=== PATIENT | male | born 1980 | race Caucasian/White ===

== ENCOUNTER 2024-10-24 13:00 | Inpatient (IN) | payer OTHER, SELFPAY ==
[2024-10-24] VITALS (36 sets, daily range): BP systolic 110–148; BP diastolic 56–99; BMI 21.0
--- NOTE | 2024-10-24 10:56 | ED.GENMED ---
History of Present Illness
General
Chief Complaint: Abdominal Symptoms
Source: patient
Exam Limitations: none
Time Seen by Provider: 10/24/24 10:42
History of Present Illness
History of Present Illness:
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 Patient started to feel unwell yesterday
afternoon while at work. He went to the bathroom around 4:30 PM and had an episode of vomiting which bloody. He states it 'looked like the exorcist.' Patient describes vomiting 'dark red with chunks.' He has vomited every hour since then. The
emesis appeared brown at one point. EMS reports balwinder bloody emesis on their arrival which was dark red. Patient started to notice black tarry stool this morning. He reports some abdominal discomfort which he attributes to the vomiting. He does
not take any blood thinners. He has never been diagnosed with liver disease/cirrhosis in the past.
Past History
Past History
ED Past Medical History: Other (Kidney stones, Ulcers); Negative Asthma, HTN, Hypercholesterolemia or NIDDM
ED Past Surgical History: None
Social History
Tobacco: Smoker
Alcohol: Daily
Personal: Single
Living: with family
Phy Exam
General Physical Exam
General Presentation: moderate distress
General Skin: warm, diaphoretic and pale
General Habitus: normal
General Mental: alert
ENT Exam
ENT Exam: normocephalic
Cardiovascular Exam
Cardiovascular Exam: tachycardia
Pulmonary Exam
Pulmonary Exam: lungs clear, no respiratory distress, no rales, no crackles, no rhonchi and no wheezing
Gastrointestinal Exam
Gastrointestinal Exam: non tender, soft, non distended and other (Stool melanotic on rectal exam which is heme positive)
Neurological Exam
Neurological Exam: alert and other (Patient tremulous )
Emilia Coma Scale
Eye Opening: Spontaneous
Verbal Response: Oriented
Motor Response: Obeys Commands
GCS Total Score: 15
Skin Exam
Skin Exam: warm/dry and pallor
Psychiatric Exam
Psychiatric Exam: anxious
Course
Orders/Labs/Results
Orders:
Orders
10/24/24 10:54
Electrocardiogram (*1) Urgent
Reason for Study: Abdominal Pain
EKG- Treatment ONCE
0.9% Sodium Chloride 1000 ml [Nss] 1,000 ml IV BOLUS
Lorazepam [Ativan] 2 mg IV NOW STA
Ondansetron Injectable [Zofran] 4 mg IV NOW STA
10/24/24 10:57
Pantoprazole [Protonix IV] 80 mg IV NOW STA
10/24/24 11:05
Type+Screen Urgent
Complete Blood Count/With Diff Urgent
Comprehensive Metabolic Panel Urgent
Lipase Urgent
Magnesium Urgent
PTT Urgent
Prothrombin Time Urgent
10/24/24 11:15
Sterile Water [Sterile Water For Injection] 30 ml .ROUTE .STK-MED ONE
10/24/24 11:39
ABO2 Urgent
BBK Wristband Number:
Associate notified that ABO2 has been ordered: [id number]
Date: 10/24/24
Time: 11:34
Cranberry Grower ID: [id number]
10/24/24 12:05
Blood Bank Products [* Blood Bank Products] Stat
Blood Bank Products: *Packed RBC Leuko(PRBC's)
Quantity: 1
Transfuse Today: Yes
Reason: Bleeding
Magnesium Sulfate 2 Gram/50 ml [Magnesium Sulfate] 2 gram in 50 ml IV NOW
10/24/24 12:21
GASTROINTESTINAL CONSULT Urgent
Consulting Provider: Monika Barajas
Was physician already notified: Yes
10/24/24 12:38
Admit/Transfer Patient As Directed
Co-Sign Provider:
Level of Care: Inpatient admission
Assign to:: Telemetry
Physician / Group: Hospitalists
Diagnosis: Bloody Emesis
Patient Condition: Fair
Reason for Telemetry: Other
Other Reason for Telemetry: EtOH Withdrawal, Active Upper GI Bleed, Tachycardia
Date to Stop Telemetry: 10/26/24
Time to Stop Telemetry: 11:00
Reason for Hospitalization: Management of bloody emesis, alcohol withdrawal, continued treatment and
monitoring
Expected length of stay greater than two midnights?: Yes
ELOS- Estimated Length of Stay in days: 3
I certify the patient meets the requirements for IP care: Yes
10/24/24 12:39
PRN Pain Medication Management As Directed
May give lesser potent ordered pain med per pt: Yes
preference::
Protocol:: Medication orders for pain may be administered in a
manner that supports deferring to patient preference
when the pt is:
- Requesting an ordered lesser potent pain medication.
Least to most potent pain medications are defined
as: acetaminophen < NSAID < tramadol < opioids
(morphine, oxycodone, hydromorphone).
- Requesting a lesser dose of the same medication IF
ORDERED.
- Requesting a less intrusive route of administration
if both routes are prescribed by the provider (PO <
IV).
10/24/24 12:40
Code Status As Directed
Resuscitation Status: Full Code
10/24/24 12:53
PRN Pain Medication Management As Directed
May give lesser potent ordered pain med per pt: Yes
preference::
Protocol:: Medication orders for pain may be administered in a
manner that supports deferring to patient preference
when the pt is:
- Requesting an ordered lesser potent pain medication.
Least to most potent pain medications are defined
as: acetaminophen < NSAID < tramadol < opioids
(morphine, oxycodone, hydromorphone).
- Requesting a lesser dose of the same medication IF
ORDERED.
- Requesting a less intrusive route of administration
if both routes are prescribed by the provider (PO <
IV).
10/24/24 12:58
Metoclopramide [Reglan] 10 mg IV NOW STA
10/24/24 12:59
Octreotide [Sandostatin] 50 mcg IV NOW STA
10/24/24 13:00
Octreotide Acetate [Sandostatin] 600 mcg 0.9% Sodium Chloride 500 ml [Nss] 500 ml IV Q12H
Pantoprazole 80 mg/100 ml Nss [Protonix] 80 mg in 100 ml IV Q10H
10/26/24 11:00
DC Protocol for Telemetry ONCE
Abnormal Lab Results
10/24/24
11:05
RBC 2.29 L 10^6/uL
(4.70-6.10)
Hgb 7.7 L g/dL
(13.0-18.0)
Hct 22.7 L %
(39.0-52.0)
MCV 99.1 H fL
(80.0-94.0)
MCH 33.6 H pg
(27.0-31.0)
RDW 14.7 H %
(11.5-14.5)
Plt Count 86 L 10^3/uL
(130-400)
Abs Immat Gran (auto) 0.1 H 10^3/uL
(0-0.05)
Absolute Neuts (auto) 8.6 H 10^3/uL
(1.4-6.5)
Absolute Lymphs (auto) 1.0 L 10^3/uL
(1.2-3.4)
Absolute Monos (auto) 0.9 H 10^3/uL
(0.1-0.6)
Immature Gran % 0.6 H %
(0-0.5)
Neutrophils % 81.3 H %
(42.2-75.2)
Lymphocytes % 9.6 L %
(20.5-51.1)
PT 22.0 H Sec
(11.4-14.6)
APTT 38.3 H Sec
(23.4-35.0)
Chloride 109 H mmol/L
(98-107)
Glucose 165 H mg/dl
(70-99)
Magnesium 1.2 L mg/dl
(1.6-2.3)
Total Bilirubin 6.4 H mg/dl
(0.2-1.3)
AST 106 H U/L
(17-59)
Albumin 3.4 L g/dl
(3.5-5.0)
Crossmatch IS Only See Detail
10/24/24 11:05
10/24/24 11:05
Vital Signs
Initial and Last Documented VS:
Initial Vital Signs
Temp Pulse Resp BP Pulse Ox
99.1 F 118 16 128/81 99
10/24/24 10:44 10/24/24 10:44 10/24/24 10:44 10/24/24 10:44 10/24/24 10:44
Last Documented Vital Signs
Temp Pulse Resp BP Pulse Ox
98.8 F 107 16 138/65 97
10/24/24 15:12 10/24/24 15:12 10/24/24 15:12 10/24/24 15:12 10/24/24 15:12
MDM/Problems Addressed
Differential Diagnosis Includes:
44yoM here with bloody emesis since yesterday. Hx of heavy alcohol use. Has never been diagnosed with cirrhosis previously. Patient is tachycardic in the 110-120 range on initial exam. BP stable. He appears pale and tremulous. Differential
diagnosis includes but is not limited to: variceal bleed, peptic ulcer disease, AVM, acute blood loss anemia
Initial ED plan: Check abdominal labs, coags, type and screen, and EKG. Will have nursing establish 2 large bore IVs. IV Zofran, Protonix, Ativan, and fluid bolus ordered.
*Pulse Oximetry
SaO2: 99
Oxygen Mode of Delivery: Room air
Patient hypoxic: no (99%)
*EKG
Interpreted by ED Provider?: Yes
EKG Intrepretation Date: 10/24/24
Heart Rate: 113
Rate: tachycardiac
Rhythm: sinus
[place]: normal axis
Interval: normal interval
QRS Pattern: normal QRS
Ischemia: no ischemia
*Critical Care Note
Total Time (30-74mins, 75-104mins- exclusive of procedures): 35
Update Note
Update Note:
Hemoglobin 7.7. Last hemoglobin in the chart was 14.5 in 2012. Platelet count 86 and total bilirubin 6.4. Magnesium 1.2 which was replaced. Consent obtained and a STAT transfusion of 1 unit PRBCs ordered. Gastroenterology notified and patient
admitted for further management.
ED Attending Note
-
Portions of this chart may have been created with voice recognition software.� Occasional wrong word or��sound alike� substitutions may have occurred due to the inherent limitations of voice recognition software.
Discharge Plan
Departure
Patient Disposition: Admit
Date of Disposition: 10/24/24
Time of Disposition: 12:21
Presentation/result/management discussed w/ accepting MD/DO: Hospitalist
Discharge Problem:
GI bleed
Interventions
Interventions:
*Risk Screen - Suicide Last Done: 10/24/24 10:44
*General Assessment Last Done: 10/24/24 10:44
*Neglect/Abuse Screening Last Done: 10/24/24 10:44
*ED- Fall Risk Assessment Last Done: 10/24/24 11:45
*ED COVID-19 Vaccine History Last Done: 10/24/24 11:45
*Nursing Disposition Last Done: 10/24/24 15:37
EP-Hfjyml-Wmcsjttems Assessment Last Done: 10/24/24 12:07
Discharge Date and Time
Discharge Date/Time: 10/24/24 15:38
[2024-10-24] MEDS: NSS 1000 IV (11:07)
[2024-10-24] MEDS: ZOFRAN 4 MG IV (11:18)
[2024-10-24] MEDS: ATIVAN 2 MG IV ×2 (11:21→13:53)
[2024-10-24] MEDS: PROTONIX IV 80 MG IV (11:30)
[2024-10-24 11:45] LABS: Hematocrit 22.7 % (39.0-52.0); Hemoglobin 7.7 g/dL (13.0-18.0); Mean Corp Hgb Conc. 33.9 g/dL (33.0-37.0); Mean Corpuscular Volume 99.1 fL (80.0-94.0); Nucleated Red Blood Cells % 0 % (-); Red Cell Dist. Width 14.7 % (11.5-14.5)
[2024-10-24 11:51] LABS: APTT 38.3 Sec (23.4-35.0); INR 1.87; PT 22.0 Sec (11.4-14.6)
[2024-10-24 12:02] LABS: ALT (SGPT) 47 U/L (0-50); AST (SGOT) 106 U/L (17-59); Albumin 3.4 g/dl (3.5-5.0); Alkaline Phosphatase 64 U/L (38-126); Blood Urea Nitrogen 18 mg/dl (9-20); Calcium 8.4 mg/dl (8.4-10.2); Carbon Dioxide 24 mmol/L (22-30); Chloride 109 mmol/L (98-107); Estimated Creatinine Clearance > 125 ml/min; Glucose 165 mg/dl (70-99); Lipase 165 U/L (23-300); Magnesium 1.2 mg/dl (1.6-2.3); Potassium 3.7 mmol/L (3.5-5.1); Sodium 139 mmol/L (135-145); Total Protein 6.4 g/dl (6.3-8.2); eGFR > 60.00
[2024-10-24] MEDS: MAGNESIUM SULFATE 50 IV (12:21)
--- NOTE | 2024-10-24 12:31 | CON.GI ---
Addendum entered and electronically signed by Monika Barajas DO 10/24/24 14:23:
The patient was seen and examined by me independently in collaboration with the nurse practitioner.
Past medical history/social history/medications/allergies/family history reviewed.
Lab data and imaging data reviewed.
Miguelito Avalos is a 44-year-old male with past medical history of alcohol abuse, history of Meckel's diverticulum status post small bowel resection, ulcers, migraines, nephrolithiasis who presents after multiple episodes of large-volume hematemesis
which started earlier this morning. He admits to daily alcohol abuse. last drink on 10/22. He reports drinking a half a bottle of Captain Abby daily. No history of hematemesis, he has prior GI bleeding secondary to Meckel's diverticulum which was
surgically treated. No previous diagnosis of cirrhosis.
On admission, patient is alert and oriented and managing his airway. Hemoglobin 7.7, no recent labs, last documented hemoglobin was in 2012 at which time his hemoglobin was 14.5.
MCV 99.1, platelets 86. T. bili 6.4, AST 106, ALT 47, Alk phos 64, albumin 3.4.
Plan:
-NPO for EGD today
-2 large bore peripheral gauge IVs
-type and screen
-transfuse for Hgb <7
-check iron panel
-PPI gtt
-Octreotide gtt
-Ceftriaxone
-following EGD, recommend abdominal US w/ dopplers, if evidence of ascites, will need diagnostic paracentesis with ascitic fluid sent to rule out SBP
-check hepatitis panel, ferritin, ceruloplasmin
-thiamine, folate
-monitor for withdrawal symptoms
Original Note:
Consultation
-
Date/Time Consultation Requested: 10/24/24 1230
Date/Time Consultation Performed: 10/24/24 1230
Requesting Provider: Irasema Amor PA-C
Performing Provider: STEPHEN Tinsley, Amber Barajas DO
Reason for Consultation: vomiting blood
Medical History
Chief Complaint / HPI
Chief Complaint: hematemsis
History of Present Illness:
Pt is a 44yo with hx ETOH abuse, bowel resection for meckel's diverticulum, ulcers, nephrolithiasis, migraines with onset of hematemesis since 7/8 PM. He admits to large volume of red blood x 10 episodes and noted with pictures provided of large
volume Pt admits to daily ETOH use with last drink on 10/22. He consumes about 1/2 bottle captain abby daily with admitting to cutting back over the years. No known hx cirrhosis, hepatitis, liver issues or GI bleeding in past. He admits to
feeling heat stroke several days ago and bite is tongue with bleeding but feels that is improved and now blood coming from stomach. On admission hb 7.7 (last 2012 14,5), WBC 10.6, platelets pending, INR 1.87, bili 6.4, AST 106, ALT 47, alk phos 64.
ammonia pending.
At this time Pt admits to brown and black stools over last day. He denies dysphagia, odynophagia, GERD, diarrhea, or constipation. Rare NSAID use but did have dose on Excedrin prior to admission. No hx EGD or colonoscopy in past.
Past Medical History
Past Medical History: Other (ulcers, nephrolithiasis, migraines)
Past Surgical History: Bowel Resection (bowel resection for Meckel's diverticulum)
Social History
Tobacco: Non-Smoker
Alcohol: None
Drug: None
Personal: Other (fiancee)
Living: With Family
Employment: Employed (auto painter helper)
Family History
Family History: Other (grandfather with cirrrhosis and alcoholism )
Allergies / Home Medications
Allergy/AdvReac Type Severity Reaction Status Date / Time
No Known Allergies Allergy Unverified 09/01/12 15:17
�Medication �Instructions �Recorded
No Meds [No Current Medications] 10/24/24
Review of Systems
-
History Source: Patient
Constitutional: Reports No Symptoms
EENT: Reports No Symptoms
Respiratory: Reports Trouble Breathing
Cardiac: Reports No Symptoms
Abdomen/GI: Reports Abdominal Pain (at time with vomiting ), Nausea and Vomiting (hemat )
Musculoskeletal: Reports Other
Neurological: Reports Dizzy and Weakness
Hematologic/Lymphatic: Reports Bruising (with recent beam falling of leg )
Vital Signs
Temp Pulse Resp BP Pulse Ox
99.1 F 123 17 124/74 98
10/24/24 11:15 10/24/24 12:00 10/24/24 12:00 10/24/24 12:00 10/24/24 11:45
Physical Exam
Exam
General: Other (ill appearing )
HEENT: Normocephalic and Other (jaundice)
Respiratory: Clear
Cardiac: Other (tachy)
GI: Soft, Non Distended and Tender (mild )
Musculoskeletal: No Clubbing and No Cyanosis
Skin: Warm and Dry
Neuro: Awake, Alert, AO x 3 and Other (slight tremors)
Psych: Calm
Results
WBC 10.6 10^3/uL (4.8-10.8) 10/24/24 11:05
Hgb 7.7 g/dL (13.0-18.0) L 10/24/24 11:05
Hct 22.7 % (39.0-52.0) L 10/24/24 11:05
MCV 99.1 fL (80.0-94.0) H 10/24/24 11:05
Absolute Neuts (auto) 8.6 10^3/uL (1.4-6.5) H 10/24/24 11:05
PT 22.0 Sec (11.4-14.6) H 10/24/24 11:05
INR 1.87 10/24/24 11:05
APTT 38.3 Sec (23.4-35.0) H 10/24/24 11:05
Sodium 139 mmol/L (135-145) 10/24/24 11:05
Potassium 3.7 mmol/L (3.5-5.1) 10/24/24 11:05
Chloride 109 mmol/L (98-107) H 10/24/24 11:05
Carbon Dioxide 24 mmol/L (22-30) 10/24/24 11:05
BUN 18 mg/dl (9-20) 10/24/24 11:05
Creatinine 0.7 mg/dL (0.7-1.3) 10/24/24 11:05
Calcium 8.4 mg/dl (8.4-10.2) 10/24/24 11:05
Total Bilirubin 6.4 mg/dl (0.2-1.3) H 10/24/24 11:05
AST 106 U/L (17-59) H 10/24/24 11:05
ALT 47 U/L (0-50) 10/24/24 11:05
Alkaline Phosphatase 64 U/L (38-126) 10/24/24 11:05
Lipase 165 U/L (23-300) 10/24/24 11:05
Diagnostic Image Results:
non on admission
Prior GI Procedures:
EGD: none
Colonoscopy: none
Assessment / Plan
-
Pt is a 44yo with hx ETOH abuse, bowel resection for meckel's diverticulum, ulcers, nephrolithiasis, migraines with onset of hematemesis since 7/8 PM. He admits to large volume of red blood x 10 episodes and noted with pictures provided of large
volume. Pt admits to daily ETOH use with last drink on 10/22. He consumes about 1/2 bottle captain abby daily with admitting to cutting back over the years. No known hx cirrhosis, hepatitis, liver issues or GI bleeding in past. He admits to
feeling heat stroke several days ago and bite is tongue with bleeding but feels that is improved and now blood coming from stomach. On admission hb 7.7 (last 2012 14,5), WBC 10.6, platelets pending, INR 1.87, bili 6.4, AST 106, ALT 47, alk phos 64.
ammonia pending.
-hematemesis
-hx ETOH abuse
-concern for underlying cirrhosis
-increased LFT's
-anemia
-coagulopathy
other med problems:
-hx meckel's diverticulum with SB resection 2012
-hx renal stones
-migraines
-hx ulcer
PLAN:
etiology of bleeding related to EV bleeding with possible underlying cirrhosis/ETOH hepatitis, local bleeding from tongue with recent admitted injury, PUD,esophagitis, vs other
plan for EGD today
will give dose Reglan now
PPI and Octreotide gtt
add abx
trend hbg
NPO
ETOH abstinence- pt counseled
ETOH withdrawal protocol per medical team
thiamine and folate
add US abdomen/doppler for AM if stable to eval liver
add hepatitis panel -- will need further liver serologies
spoke with labs to expedite platelet result
MELD--3.0--20, DF-47.8
I offered to call umer dupree to update-- pt declined
-
-
Thank you for consultation and allowing me to participate in the patient's care. Please call the solar energy installation manager GI physician during the after hours with any questions or concerns.
--- NOTE | 2024-10-24 12:34 | EDRN ---
Blood requisition form sent to lab for 1st unit of PRBC.
[2024-10-24] MEDS: REGLAN 10 MG IV (13:17)
[2024-10-24] MEDS: PROTONIX 100 IV ×2 (13:21→22:52)
[2024-10-24] MEDS: SANDOSTATIN 50 MCG IV (13:23)
[2024-10-24] MEDS: SANDOSTATIN 500.6 MCG IV (13:27)
[2024-10-24] MEDS: ROCEPHIN 1000 MG IV (13:30)
[2024-10-24] MEDS: STERILE WATER FOR INJECTION 10 ML IV (13:31)
[2024-10-24 13:43] LABS: Platelet Count 86 10^3/uL (130-400)
--- NOTE | 2024-10-24 14:51 | HPS.HSE ---
Addendum entered and electronically signed by Humphrey Salas MD 10/24/24 20:28:
Attending Addendum-
I performed a history and physical exam of the patient and discussed his management with the resident. I reviewed the resident's note and agree with the documented findings and plan of care CC/HPI- Presents to ED from home with dad. Per father he
states that his son was having dark stool and hematemesis this am. Patient appears groggy and and a poor historian due to minimization. Has told different stories to different providers. Patient states that this has only happened once before last
week. Currently has no complaints. No N/V fevers chills abd pain tremors palpitations CP. Full 12 point ROS reviewed and negative except as documented Exam-vitals reviewed in EMR GEN-NAD heart tachycardic no MRG lungs CTA B/L Abd soft NT ND pos BS
enlarged liver pos caput @ umbilicus Ext No edema Neuro AAO x 3 no asterixis
Plan:
# Acute Anemia secondary to Upper GI Bleed
- high likelihood of bleeding esophageal varices
- start stat PPI and octreotide gtts
- start rocephin
- transfuse 1 unit prbc
- trend CBC q 8
- c/s GI for eval
- high Emilia Blatchford score will require urgent EGD
# AUD with high risk W/D
- per patient drinks 1/2 bottle captain mora per day unclear for how long- also states that he has 'maybe has a seizure before'
- start MSAS protocol
- start high dose thiamine, cont folate and MVI
- start phenobarb taper as has high likelihood of withdrawal
- c/s [facility]ES will benefit from IP rehab on DC
# Acute Alcoholic Hepatitis and acute liver failure
- check hep panel
- hyperbilirubinemia- elevated t bili
- MELD-na-21, DF-44
- should start steroids
- INR 1.8 albumin 3.4
- monitor closely
# Tobacco Abuse
- advised to quit
- offer patch
# Hypomagnesemia
-replete
# H/O Meckels Diverticulum s/p SB resection
DVTp-SCDs
CODE-Full
Dispo- hope IP ETOH rehab
ACP
Patient consented to discuss, was with father, time spent explanation of advance directives, changes in health status, patient�s health care wishes if the patient becomes unable to make health decisions, goals of care, code status, and prognosis- 16
minutes
Time spent coordinating care, review of plan of care with resident, personally reviewed previous records in EMR, med rec, labs, radiology, d/w nursing, family total time documented is exclusive of any additional time listed that was spent in advance
care planning discussion -�76 minutes
Original Note:
Family Physician
-
Family Physician: Dayanna El
Chief Complaint
-
44 yrs M arrived to the ED with c/o for nausea, vomiting of blood,blurring vision followed by dizziness at yesterday evening.
History of Present Illness
his last alcohol drink was on Tuesday (10/22) night. he had 2 pints of captain abby with soda. He had vomiting sensation started around yesterday evening followed by every hour vomiting, initially it was clear and started to bucket turner into brown ,
black color. he had 8-10 episodes of bloody vomiting (he showed the image - bloody, thick 20ml hemetemesis), blurry vision , dizziness. associated with black stools today morning. Not associated with abdominal pain, GERD, constipation, chills, fever.
Medical History
Past Medical History
Past Medical History: Reports None
Additional Past Medical History:
ulcer, nephrolithiasis, migraines
Past Surgical History: Reports Bowel Resection (Meckels diverticulum with Small bowel resection done 2012 for Small Bowel Obstruction.)
Additional Past Surgical History:
meckels diverticulum with Small Bowel resection on 2012.
Social History
Tobacco: Non-smoker
Alcohol: Daily (1/2 bottle of captain mora )
Drug: None
Personal: Single
Employment: Employed
Family History
Family History: Not pertinent
Allergies / Home Medications
Allergies reflects when Allergies were last updated in [facility].
Home Medications with original date entered in [facility]
Allergy/Medication List:
none
Review of Systems
-
History Source: Patient
Constitutional: Reports Fatigue
Abdomen/GI: Reports Vomiting (bloody vomiting for 10 times. ) and Black Stools
Musculoskeletal: Reports No Symptoms
Skin: Reports No Symptoms
Neurological: Reports No Symptoms
Endocrine: Reports No Symptoms
Hematologic/Lymphatic: Reports No Symptoms
Physical Exam
Vital Signs
Vital Signs
Temp Pulse Resp BP Pulse Ox
98.9 F 118 19 113/61 94
10/24/24 13:01 10/24/24 14:30 10/24/24 14:30 10/24/24 14:30 10/24/24 13:45
Physical Exam
General: Well Developed
HEENT: Anicteric
Respiratory: Clear
Cardiac: S1/S2 (loud ) and Tachycardia
GI: Soft, Non Tender and Other (Capute medusa present)
Rectal: Red (stools)
Musculoskeletal: Clubbing
Skin: Warm
Hematologic/Lymphatic: No Lymphadenopathy
Psych: Calm
Laboratory Results
-
10/24/24 11:05
10/24/24 11:05
Laboratory Results
PT 22.0 Sec (11.4-14.6) H 10/24/24 11:05
INR 1.87 10/24/24 11:05
APTT 38.3 Sec (23.4-35.0) H 10/24/24 11:05
Total Bilirubin 6.4 mg/dl (0.2-1.3) H 10/24/24 11:05
AST 106 U/L (17-59) H 10/24/24 11:05
ALT 47 U/L (0-50) 10/24/24 11:05
Alkaline Phosphatase 64 U/L (38-126) 10/24/24 11:05
Lipase 165 U/L (23-300) 10/24/24 11:05
Impression/Plan
-
Assessment and Plan:
# Hematemesis/ upper GI Bleeding/ Esophageal varices:
Hb 7.7 while on admission
1pRBC transfused.
H&H check david
Ceftriaxone 1000mg iv- DAY1
Upper GI Endoscopy done:
Two bands were successfully placed with complete eradication, resulting in deflation of varices. There was no bleeding at the end of the procedure. 2 bands were fired around one varix. A total of 3 bands were used during the
procedure.
Impression:
- Grade III esophageal varices with stigmata of recent bleeding. Completely eradicated. Banded.
- Erythematous mucosa in the antrum.
- Generalized oozing in the duodenal bulb, no discrete lesion identified.
# Alcohol usage disorder:
# AST 106 (H)
# Lipase- 165
# Mg = 1.2 (L)
# PT- 22 (H)
Continue
Thiamine HCl 100mg PO BID
Thiamine 200mg IV given
Phenobarbital 97.5 mg IV TID
Octreotide 600mcg iv
Lorazepam 2mg iv
Folic acid 1 mg OD.
# Mild liver cirrhosis:
Albumin= 3.4
INR- 1.87
MELD Score= 20 points.
CODE: Full
Disposition: home
DVT prophylaxis: Pneumatic Compression device.
(Holding Anticoagulation because of the Upper GIT bleeding.)
[2024-10-24 15:17] LABS: Ammonia 75 umol/L (9-30)
[2024-10-24 16:54] LABS: Magnesium 1.9 mg/dl (1.6-2.3)
[2024-10-24] MEDS: PHENOBARBITAL 97.5 MG IV ×2 (17:41→22:33)
--- NOTE | 2024-10-24 18:41 | PTCARENOTE ---
Patient arrived via stretcher from PACU. He is withdrawn but alert and oriented x3, speech is a bit mumbled. Pt denies pain. ST at 100 BPM. resp easy and regular on room air pulse ox 94%.Lungs diminished but clear. Abdomen soft with hyperactive
bowel tones. Pt reports last alcoholic drink was Tuesday evening. IV protonix and IV Octreotide infusing. Admission started and assessment completed
[2024-10-24] MEDS: FOLVITE PO (20:37)
[2024-10-24] MEDS: THIAMINE INJECTION 200 MG IV (22:32)
[2024-10-24] MEDS: THIAMINE INJECTION IV (22:32)
[2024-10-24] MEDS: ATIVAN 1 MG PO (22:52)
[2024-10-24] MEDS: FOLVITE 1 MG PO (22:52)
[2024-10-25] VITALS (16 sets, daily range): BP systolic 104–135; BP diastolic 60–76; BMI 20.8
[2024-10-25] MEDS: SANDOSTATIN 500.6 MCG IV ×2 (01:54→14:18)
[2024-10-25 04:10] LABS: Hematocrit 20.6 % (39.0-52.0); Hemoglobin 7.0 g/dL (13.0-18.0); Mean Corp Hgb Conc. 34.0 g/dL (33.0-37.0); Mean Corpuscular Volume 96.7 fL (80.0-94.0); Platelet Count 61 10^3/uL (130-400); Red Cell Dist. Width 15.8 % (11.5-14.5)
[2024-10-25 04:14] LABS: INR 1.90; PT 22.3 Sec (11.4-14.6)
[2024-10-25 04:31] LABS: ALT (SGPT) 42 U/L (0-50); AST (SGOT) 79 U/L (17-59); Albumin 2.8 g/dl (3.5-5.0); Alkaline Phosphatase 48 U/L (38-126); Blood Urea Nitrogen 19 mg/dl (9-20); Calcium 7.5 mg/dl (8.4-10.2); Carbon Dioxide 25 mmol/L (22-30); Chloride 114 mmol/L (98-107); Estimated Creatinine Clearance > 125 ml/min; Glucose 131 mg/dl (70-99); Iron 184 ug/dl (49-181); Potassium 4.2 mmol/L (3.5-5.1); Sodium 142 mmol/L (135-145); Total Protein 5.5 g/dl (6.3-8.2); eGFR > 60.00
--- NOTE | 2024-10-25 04:32 | W.PN.UPDATE ---
Update Note
Progress Note Update
hgb level 7 this am previously 7.7. One unit of blood ordered.
[2024-10-25 04:40] LABS: Total Iron Binding Capacity 239 ug/dl (261-462)
[2024-10-25 05:05] LABS: Ferritin 157.0 ng/ml (17.9-464.0)
--- NOTE | 2024-10-25 05:52 | PTCARENOTE ---
Pt's Hct this am 20.6 and Hgb 7. STEPHEN Álvarez notified. 1u blood Rx'd and currently infusing (see TAR).
--- NOTE | 2024-10-25 06:26 | W.PN.HOSP.TC ---
Addendum entered and electronically signed by Humphrey Salas MD 10/25/24 22:48:
Attending Addendum-I saw and evaluated the patient. I reviewed the resident�s note and agree with findings and plan as documented in the resident�s note. Sub: Patient appears groggy and and a poor historian due to minimization/confabulation. hb
dropped last pm was given 1 unit prbc. Per patient had hematemesis but per nursing unable to be verified. No N/V fevers chills abd pain tremors palpitations CP. Full 12 point ROS reviewed and negative except as documented Exam-vitals reviewed in
EMR GEN-NAD heart RRR no MRG lungs CTA B/L Abd soft NT ND pos BS enlarged liver pos caput @ umbilicus Ext No edema left abkle bruising and ttp Neuro AAO x 3 no asterixis
Plan:
# Acute Anemia secondary to Upper GI Bleed/Esophageal Varices
- cont PPI and octreotide gtts
- cont Rocephin x 7 days
- transfused 2 units prbc thus far
- trend CBC q 8
- appreciate GI input
- EGD 10/24- Grade III esophageal varices with stigmata of recent bleeding. Completely eradicated. Banded.
- Abd doppler-high resistance hepatic artery waveform, biphasic normal directional in caliber hepatic vein blood flow as well as hepatofugal portal vein blood flow.
- start nonselective BB-propranolol
- transferred to IMU post procedure
- monitor closely
# AUD with high risk W/D
- per patient drinks 1/2 bottle captain mora per day unclear for how long- also states that he has 'maybe has a seizure before'
- MSAS @ 1
- cont high dose thiamine, cont folate and MVI
- start phenobarb taper
- c/s [facility] will benefit from IP rehab on DC
#Thrombocytopenia
- liekly etoh abuse induced
- cont to trend
# Tachycardia
- ECHO 10/25-Normal left ventricular size, wall thickness and systolic function. No regional wall motion abnormalities are seen. The ejection fraction is estimated at 55-60%.
- start propanolol
# Leukocytosis
- likely stress rxn
- cont to monitor repeat CBC in am
# Acute Alcoholic Hepatitis and acute liver failure
- acute hep panel-neg
- hyperbilirubinemia- elevated t bili -trending down
- AST trending down
- t/c steroids
- monitor closely
# Left ankle pain and bruising
- check ankle x ray
# Tobacco Abuse
- advised to quit
- offered patch
# Hypomagnesemia
-repleted
# H/O Meckels Diverticulum s/p SB resection
DVTp-SCDs
CODE-Full
Dispo- [facility]
Time spent coordinating care, review of plan of care with resident, personally reviewed records in EMR, med rec, consults, notes, labs, radiology, d/w nursing and father� 53 mins
Original Note:
Today's Communication/Plan
-
Check h&h
Octreotide restarted
Check for INR, Magnesium, Calcium.
ECHO ordered
Magnesium replenish tomorrow depending on the Mg level.
Assessment / Plan
Assessment / Plan
# Acute Anemia secondary to Upper GI Bleed
- high likelihood of bleeding esophageal varices
- Receiving stat PPI and octreotide gtts
- rocephin on Day 2
- transfused 1 unit pRBC today morning
- trend CBC q 8 ordered.
# AUD with high risk W/D
- per patient drinks 1/2 bottle captain mora per day unclear for how long- also states that he has 'maybe has a seizure before'
- start MSAS protocol- 2
- started high dose thiamine, continued folate and MVI
- started phenobarb taper as has high likelihood of withdrawal
- c/s [facility] will benefit from IP rehab on DC
# Acute Alcoholic Hepatitis and acute liver failure
- check hep panel
- hyperbilirubinemia- elevated t bili
- MELD-na-21, DF-44
- INR 1.8 albumin 3.4
- monitor closely
# Tobacco Abuse
- advised to quit
- offer patch
# Hypomagnesemia:
- check serum Magnesium
# H/O Meckels Diverticulum s/p SB resection
DVTp-SCDs
CODE-Full
Dispo- [facility]
Anticipated Discharge: > 48 hours
Subjective/Interval History
-
Date of Service: October 25, 2024
44 yrs old M Anemia with Upper GI Bleeding has concerns for left abdominal pain. Not associated with nausea, vomiting, diarrhea, constipation.
Objective Data
-
Labs:
10/25/24 03:47
Laboratory Results
PT 22.3 Sec (11.4-14.6) H 10/25/24 03:47
INR 1.90 10/25/24 03:47
APTT 38.3 Sec (23.4-35.0) H 10/24/24 11:05
Total Bilirubin 5.9 mg/dl (0.2-1.3) H 10/25/24 03:47
AST 79 U/L (17-59) H 10/25/24 03:47
ALT 42 U/L (0-50) 10/25/24 03:47
Alkaline Phosphatase 48 U/L (38-126) 10/25/24 03:47
Lipase 165 U/L (23-300) 10/24/24 11:05
Laboratory Results
10/25/24
03:47
WBC 7.5
Hgb 7.0 L
Hct 20.6 L*
Plt Count 61 L D
PT 22.3 H
INR 1.90
Sodium 142
Potassium 4.2
Chloride 114 H
Carbon Dioxide 25
BUN 19
Creatinine 0.7
Glucose 131 H
Calcium 7.5 L
Total Bilirubin 5.9 H
AST 79 H
ALT 42
Alkaline Phosphatase 48
Vital Signs:
Vital Signs
Temp Pulse Resp BP Pulse Ox
98.7 F 89 16 127/68 96
10/25/24 06:02 10/25/24 06:02 10/25/24 06:02 10/25/24 06:02 10/25/24 04:00
I&O
10/23/24 10/24/24 10/25/24
06:59 06:59 06:59
Intake Total 920 / 920
Output Total 700 / 700
Balance 220 / 220
Review of Systems
-
History Source: Patient
Respiratory: Reports No Symptoms
Cardiac: Reports No Symptoms
Abdomen/GI: Reports Abdominal Pain
Breast: Reports No Symptoms
Genitourinary: Reports No Symptoms
Musculoskeletal: Reports No Symptoms
Skin: Reports No Symptoms
Neuro: Reports No Symptoms
Endocrine: Reports No Symptoms
Hematologic / Lymphatic: Reports No Symptoms
Allergy / Immunology: Reports No Symptoms
Physical Exam
-
General: No Apparent Distress
Respiratory: Clear to Auscultation
Cardiac: Regular Rhythm and S1/S2 (loud S1, S2 )
GI: Soft and Tender (mild tenderness present at left side abdomen)
Genito-urinary: No Costovertebral Tender
Skin: Warm
Neuro: AO x 3
Psych: Calm
[2024-10-25 07:54] LABS: Magnesium 2.1 mg/dl (1.6-2.3)
[2024-10-25 08:42] LABS: Urine Character Clear (Clear)
[2024-10-25] MEDS: THIAMINE INJECTION 200 MG IV ×2 (08:52→16:17)
[2024-10-25] MEDS: FOLVITE 1 MG PO (08:53)
[2024-10-25] MEDS: PHENOBARBITAL 97.5 MG IV ×3 (08:53→22:11)
[2024-10-25] MEDS: FLUSH (NSS) 4 FLUSH IV (08:54)
--- NOTE | 2024-10-25 08:59 | W.PN.GI.CBS2 ---
Addendum entered and electronically signed by STEPHEN Carrera 10/25/24 15:40:
left message for joon again to review
Addendum entered and electronically signed by Monika Barajas DO 10/25/24 11:41:
The patient was seen and examined by me independently in collaboration with the nurse practitioner.
Past medical history/social history/medications/allergies/family history reviewed.
Lab data and imaging data reviewed.
Patient awake and alert this morning, no complaints. s/p EGD yesterday with large esophageal varices found w/ high risk stigmata, banded x2. Repeat hgb was 7.0 this morning, suspect this is reflective of initial bleeding as no repeat since his
arrival in ED. No hematemesis or melena overnight. Febrile during EGD, CXR, UA, Blood cx ordered. Temp of 99.1 this morning.
UGI Bleed 2/2 Esophageal varices, suspect new diagnosis of decompensated etoh cirrhosis vs. severe alc hep with portal HTN
-s/p EGD 10/25 with esophageal varices, banded x2. Needs repeat in 4 weeks to assess for eradication, discussed with patient
-trend H&H, transfuse for Hgb <7
-PPI gtt x72 hours
-Octreotide gtt x72 hours
-Antibiotics x 7 days
-Abdominal US w/ dopplers pending
-f/u hepatitis serologies; ceruloplasmin pending, ferritin WNL; will need more comprehensive panel performed as an outpatient
-mildly elevated INR, Vit. K given, suspect nutritional
#Fever-- withdrawal (last drink 10/22) vs. infection
-CXR showed cardiomegaly and pulm vasc. congestion, may need ECHO, discussed with primary team
-c/w abx, f/u blood cultures; UA neg. CXR w/o infiltrate
-if evidence of ascites on US, will need diagnostic paracentesis to r/o SBP
#Etoh abuse
-discussed need for etoh cessation
-monitor for withdrawal
-thiamine, folate
Addendum entered and electronically signed by STEPHEN Carrera 10/25/24 11:27:
received call back from joon but unable to reach in return call
Addendum entered and electronically signed by STEPHEN Carrera 10/25/24 10:55:
Pt was also noted with fever during GI procedure 10/24-
blood cx pending
UA neg
10/25/24 CXR
1. Mild cardiomegaly with elevated pulmonary venous pressures.
2. Mildly decreased bilateral lung volumes.
no further fever since admission
Addendum entered and electronically signed by STEPHEN Carrera 10/25/24 10:45:
I left messge for family contact Joon for update
Original Note:
Today's Communication / Plan
-
Pt admitted with GI bleeding secondary to EV with banding and likely underlying cirrhosis -- ETOH(neg level on admission will add PETH testing) +/- any other etiology with continued work up
no signs of bleeding overnight
cont PPI/octreotide gtt
for US with doppler today to assess liver
PPI and Octreotide gtt x 72 hours
cont abx
trend hbg-- 7.7 then 7 for transfusion today
ok for clear diet no reds after US
ETOH abstinence- pt counseled
ETOH withdrawal protocol per medical team
some elevated ammonia will add low dose Lactulose daily
thiamine and folate
add hepatitis panel, ceruloplasmin, iron studies (iron 184, TIBC 239, sat 76, ferritin 157) -- will need further liver serologies outpatient
will give dose vitamin K with anemia and bleeding
MELD--3.0--20 on admission continue to trend labs
pt agreeable to review with Joon will update later today
Assessment / Plan
-
Pt is a 44yo with hx ETOH abuse, bowel resection for meckel's diverticulum, ulcers, nephrolithiasis, migraines with onset of hematemesis since 7/8 PM. He admits to large volume of red blood x 10 episodes and noted with pictures provided of large
volume. Pt admits to daily ETOH use with last drink on 10/22. He consumes about 1/2 bottle captain abby daily with admitting to cutting back over the years. No known hx cirrhosis, hepatitis, liver issues or GI bleeding in past. He admits to
feeling heat stroke several days ago and bite is tongue with bleeding but feels that is improved and now blood coming from stomach. On admission hb 7.7 (last 2012 14,5), WBC 10.6, platelets pending, INR 1.87, bili 6.4, AST 106, ALT 47, alk phos 64.
75.
10/24/24 EGD Barajas- Grade III esophageal varices with stigmata of recent
bleeding. Completely eradicated. Banded.
- Erythematous mucosa in the antrum.
- Genrealized oozing in the duodenal bulb, no discrete
lesion identified.
- No specimens collected.
-hematemesis s/p eGD with EV and banding
-hx ETOH abuse
-concern for underlying cirrhosis
-increased LFT's
-anemia
-coagulopathy
-elevated ammonia likely mild HE
other med problems:
-hx meckel's diverticulum with SB resection 2012
-hx renal stones
-migraines
-hx ulcer
PLAN:
Pt admitted with GI bleeding secondary to EV with banding and likely underlying cirrhosis -- ETOH(neg level on admission will add PETH testing) +/- any other etiology with continued work up
no signs of bleeding overnight
cont PPI/octreotide gtt
for US with doppler today to assess liver
PPI and Octreotide gtt x 72 hours
cont abx
trend hbg-- 7.7 then 7 for transfusion today
ok for clear diet no reds after US
ETOH abstinence- pt counseled
ETOH withdrawal protocol per medical team
some elevated ammonia will add low dose Lactulose daily
thiamine and folate
add hepatitis panel, ceruloplasmin, iron studies (iron 184, TIBC 239, sat 76, ferritin 157) -- will need further liver serologies outpatient
will give dose vitamin K with anemia and bleeding
MELD--3.0--20 on admission continue to trend labs
pt agreeable to review with Joon will update later today
Subjective
Subjective
Date of Service: October 25, 2024
no stools, NPO
Objective
Data Reviewed
Laboratory Data:
Laboratory Results
10/25/24 03:47
10/25/24 03:47
Laboratory Results
PT 22.3 Sec (11.4-14.6) H 10/25/24 03:47
INR 1.90 10/25/24 03:47
APTT 38.3 Sec (23.4-35.0) H 10/24/24 11:05
Phosphorus 3.7 mg/dl (2.5-4.5) 10/24/24 16:36
Magnesium 2.1 mg/dl (1.6-2.3) 10/25/24 03:47
Total Bilirubin 5.9 mg/dl (0.2-1.3) H 10/25/24 03:47
AST 79 U/L (17-59) H 10/25/24 03:47
ALT 42 U/L (0-50) 10/25/24 03:47
Alkaline Phosphatase 48 U/L (38-126) 10/25/24 03:47
Lipase 165 U/L (23-300) 10/24/24 11:05
Vital Signs and I&O:
Vital Signs
Temp Pulse Resp BP Pulse Ox
98.2 F 89 16 127/68 96
10/25/24 07:54 10/25/24 06:02 10/25/24 06:02 10/25/24 06:02 10/25/24 04:00
I&O
10/24/24 10/25/24 10/26/24
06:59 06:59 06:59
Intake Total 920 / 920
Output Total 700 / 700
Balance 220 / 220
Physical Exam
Physical Exam
HEENT: Moist mucous membranes and Other (jaundice )
Cardiology: Normal Sinus Rhythm
Pulmonary: Clear
GI: Soft, Non Distended and Non Tender
Extremities: Edema and Other (bruising)
Neuro: Non Focal
[2024-10-25] MEDS: MEPHYTON 10 MG PO (09:55)
[2024-10-25] MEDS: DUPHALAC/CHRONULAC 20 GRAMS PO (09:55)
[2024-10-25] MEDS: PROTONIX 100 IV ×2 (09:57→20:36)
--- NOTE | 2024-10-25 10:59 | PTCARENOTE ---
Assumed care of pt after morning report. 1 unit PBCs infusing and pt tolerated full unit. He is drowsy but arousable. MSAS continues. Pt tremulous. brother in law at bedside
--- NOTE | 2024-10-25 11:25 | PTCARENOTE ---
Pt is alert, speech slow but appropriate. Pt disinterested in conversing with visitor. Pt arrived to IMU yesterday and admission assessment completed and multiple bruises scattered throughout body, extremities. Left ankle/foot swollen and
blue/purple bruising. Pt states he 'dropped a beam on it'. Pt moving toes, sensation intact, cap refill brisk. Pt tells me the bruises on upper arms and thighs are also from 'moving beams around'. Continue to monitor any signs of active bleeding.
--- NOTE | 2024-10-25 12:23 | PTCARENOTE ---
Patient NPO this am, abdominal US completed and order to start clear liquids noted. Pt taking ice chips at this time.
[2024-10-25 12:35] LABS: Ammonia 58 umol/L (9-30)
--- NOTE | 2024-10-25 12:56 | CM ---
Initial assessment completed with patient who lives with his zac in a 2 story home with no basement, B/B on 2nd floor and no bath on 1st., 24 steps to enter home. [employer] patient was independent in ambulation and ADL's, drives, works. No DME, no
in-home services. No HC-POA. No service. PA is Dayanna El in [place] with [facility] and Pharmacy is [facility] in [place]. [facility]. Patient has declined meeting with [facility] sales development representative. He is aware
of available services in the community. Has participated in NA/AA. Not interested in inpatient. His father is a recovering alcoholic. Discharge POC: Anticipate home with no needs.
[2024-10-25 13:04] LABS: Calcium 7.2 mg/dl (8.4-10.2)
[2024-10-25] MEDS: ROCEPHIN 1000 MG IV (14:19)
[2024-10-25] MEDS: STERILE WATER FOR INJECTION 10 ML IV (14:20)
[2024-10-25] MEDS: ATIVAN 1 MG PO (16:17)
[2024-10-25 16:29] LABS: Hematocrit 23.5 % (39.0-52.0); Hemoglobin 8.3 g/dL (13.0-18.0); Mean Corp Hgb Conc. 35.3 g/dL (33.0-37.0); Mean Corpuscular Volume 95.9 fL (80.0-94.0); Platelet Count 74 10^3/uL (130-400); Red Cell Dist. Width 16.1 % (11.5-14.5)
[2024-10-25 19:06] LABS: Hepatitis B Surface Antigen Negative (Negative)
[2024-10-25 19:24] LABS: Hepatitis A Antibody, Total Negative (Negative); Hepatitis C Antibody Negative (Negative)
[2024-10-25] MEDS: MELATONIN 5 MG PO (22:23)
[2024-10-26] VITALS (12 sets, daily range): BP systolic 94–118; BP diastolic 59–80
[2024-10-26 00:23] LABS: Hematocrit 22.1 % (39.0-52.0); Hemoglobin 7.7 g/dL (13.0-18.0); Mean Corp Hgb Conc. 34.8 g/dL (33.0-37.0); Mean Corpuscular Volume 96.9 fL (80.0-94.0); Platelet Count 65 10^3/uL (130-400); Red Cell Dist. Width 15.8 % (11.5-14.5)
[2024-10-26] MEDS: THIAMINE INJECTION 200 MG IV ×4 (01:41→23:05)
[2024-10-26] MEDS: SANDOSTATIN 500.6 MCG IV ×2 (01:41→14:26)
[2024-10-26 05:02] LABS: Hematocrit 22.0 % (39.0-52.0); Hemoglobin 7.8 g/dL (13.0-18.0); Mean Corp Hgb Conc. 35.5 g/dL (33.0-37.0); Mean Corpuscular Volume 95.7 fL (80.0-94.0); Platelet Count 68 10^3/uL (130-400); Red Cell Dist. Width 15.8 % (11.5-14.5)
[2024-10-26 05:06] LABS: INR 1.87; PT 22.0 Sec (11.4-14.6)
[2024-10-26 05:23] LABS: ALT (SGPT) 35 U/L (0-50); AST (SGOT) 61 U/L (17-59); Albumin 2.7 g/dl (3.5-5.0); Alkaline Phosphatase 49 U/L (38-126); Ammonia 29 umol/L (9-30); Blood Urea Nitrogen 16 mg/dl (9-20); Calcium 7.2 mg/dl (8.4-10.2); Carbon Dioxide 24 mmol/L (22-30); Chloride 111 mmol/L (98-107); Estimated Creatinine Clearance 112 ml/min; Glucose 98 mg/dl (70-99); Magnesium 2.0 mg/dl (1.6-2.3); Potassium 3.7 mmol/L (3.5-5.1); Sodium 137 mmol/L (135-145); Total Protein 5.4 g/dl (6.3-8.2); eGFR > 60.00
--- NOTE | 2024-10-26 06:19 | W.PN.GI.CBS2 ---
Today's Communication / Plan
-
Please see assessment and plan for details.
Assessment / Plan
-
1. GI bleed: Secondary to esophageal varices, unclear if cirrhosis versus severe alcoholic hepatitis with portal hypertension, status post banding and doing well with no further signs of bleeding. He is completing day 3 of octreotide and PPI.
Ultrasound Doppler showed no thrombus there was limited. Hepatitis panel negative, other serologies pending. LFTs continue to improve. At this point we will advance to full liquid diet, continue day 3 of octreotide and PPI, continue propranolol,
antibiotics and withdrawal protocol. His ammonia was mildly elevated, no encephalopathy now, on lactulose daily. If continues to do well then likely able to discharge tomorrow to complete 7 days of antibiotics, plan repeat EGD in 4 weeks and
further outpatient workup.
Subjective
Subjective
Date of Service: October 26, 2024
Patient feeling okay, no further vomiting, no fevers, had dark stool yesterday. Denies any abdominal pain, tolerated clears without difficulty.
Objective
Data Reviewed
Laboratory Data:
Laboratory Results
10/26/24 04:44
Laboratory Results
PT 22.0 Sec (11.4-14.6) H 10/26/24 04:44
INR 1.87 10/26/24 04:44
APTT 38.3 Sec (23.4-35.0) H 10/24/24 11:05
Phosphorus 3.7 mg/dl (2.5-4.5) 10/24/24 16:36
Magnesium 2.0 mg/dl (1.6-2.3) 10/26/24 04:44
Total Bilirubin 4.6 mg/dl (0.2-1.3) H 10/26/24 04:44
AST 61 U/L (17-59) H 10/26/24 04:44
ALT 35 U/L (0-50) 10/26/24 04:44
Alkaline Phosphatase 49 U/L (38-126) 10/26/24 04:44
Lipase 165 U/L (23-300) 10/24/24 11:05
Vital Signs and I&O:
Vital Signs
Temp Pulse Resp BP Pulse Ox
98.0 F 83 22 117/68 96
10/26/24 03:32 10/26/24 04:25 10/26/24 04:00 10/26/24 04:25 10/26/24 04:25
I&O
10/24/24 10/25/24 10/26/24
06:59 06:59 06:59
Intake Total 920 / 920 2459 / 2459
Output Total 700 / 700 2225 / 2225
Balance 220 / 220 234 / 234
Physical Exam
Physical Exam
General: NAD, alert and oriented x 3
Abdomen: normal bowel sounds, soft, no tenderness, no masses or bruits, no ascites
--- NOTE | 2024-10-26 06:35 | W.PN.HOSP.TC ---
Addendum entered and electronically signed by Humphrey Salas MD 10/26/24 20:51:
Attending Addendum-I saw and evaluated the patient. I reviewed the resident�s note and agree with findings and plan as documented in the resident�s note. Sub: complains of left ankle pain. Denies hematemesis. No N/V fevers chills abd pain tremors
palpitations CP. Full 12 point ROS reviewed and negative except as documented Exam-vitals reviewed in EMR GEN-NAD heart RRR no MRG lungs CTA B/L Abd soft NT ND pos BS HSM pos caput @ umbilicus Ext No edema left ankle bruising and ttp Neuro AAO x 3
no asterixis
Plan:
# Acute Blood Loss Anemia secondary to Upper GI Bleed/Esophageal Varices
- cont PPI and octreotide gtts
- cont Rocephin x 7 days
- transfused 2 units prbc thus far
- trend CBC q 12
- appreciate GI input
- EGD 10/24- Grade III esophageal varices with stigmata of recent bleeding. Completely eradicated. Banded.
- Abd doppler- high resistance hepatic artery waveform, biphasic normal directional in caliber hepatic vein blood flow as well as hepatofugal portal vein blood flow.
- cont nonselective BB-propranolol
- transfer to tele
- monitor closely
- DC in am with close follow up GI
# TME
- from ETOH w/d and probable mild Hepatic Encephalopathy
- cont lactulose
- ammonia trending down
# AUD with high risk W/D
- per patient drinks 1/2 bottle captain mora per day unclear for how long- also states that he has 'maybe has a seizure before'
- MSAS @ 0-1
- cont thiamine, cont folate and MVI
- cont phenobarb taper
- c/s [facility] - patient refusing IP rehab
- counselled at great length re complete abstinence
# Thrombocytopenia
- secondary to HSM and etoh abuse
- cont to trend
# Leukocytosis
- likely stress rxn
- cont to monitor repeat CBC in am
# Acute Alcoholic Hepatitis and acute liver failure
- acute hep panel-neg
- hyperbilirubinemia- elevated t bili -trending down
- AST trending down
- monitor closely
# Left ankle fracture
- ankle x ray-4.8 mm chronic nonunited cortical fracture of the dorsal talar neck.
- consult ortho
- pain control, WBAT, RICE
# Tobacco Abuse
- advised to quit
- offered patch
# Hypomagnesemia
-repleted
# H/O Meckel Diverticulum s/p SB resection
DVTp-SCDs
CODE-Full
Dispo- DC home in am
Time spent coordinating care, review of plan of care with resident, personally reviewed records in EMR, med rec, consults, notes, labs, radiology, d/w nursing and father� 51 mins
Original Note:
Today's Communication/Plan
-
- Gabapentin 200mg added
- CBC, CMP
- to monitor anemia with
Assessment / Plan
Assessment / Plan
# Acute Anemia secondary to Upper GI Bleed:
-Hb- 7.9, HCT- 22.8, platelet Count- 88 L; PT- 22; INR= 1.87
- Chronic anemia
- 1 pRBC infused yesterday, today Hb level improved from 7.8. to 7.9
- continue to monitor H&H
- Endoscopy mentioned stage 3 esophageal varices with ligation and 3 banding placed.
- Patient is on 3 rd day of Octeriotide iv, protonix 80 mg
# AUD with high risk W/D
- per patient drinks 1/2 bottle captain abby per day
- start MSAS protocol- 0 today morning. ( Lorazepam is given PRN)
- started high dose thiamine, continued folate and ceftriaxone 1000mg iv DAY 3
- started phenobarbitone taper as has high likelihood of withdrawal.
- Continue gabapentin 200mg PO for the pain.
# Acute Alcoholic Hepatitis and acute liver failure
- AST, ALT Total billirubin level improvised comparatively from yesterday.
- MELD-na-21,
- INR 1.8 albumin 2.7 reduced comparatively from yesterday.
- monitor closely for signs of jaundice,
- propranolol 20 mg BID started.
- pt receiving Lactulose 20 mg to reduce the future hepatic encephalopathy.
- Doppler USG: Mild hepatomegaly with small left lobe hepatic cyst.
# Tobacco Abuse
- advised to quit
- offer patch
# Left Ankle fracture:
Left ankle swelling,4.8 mm chronic nonunited cortical fracture of the dorsal talar neck.
Consulted Ortho for the future.
# Hypomagnesemia:
- Magnesium level now is 2.0
# H/O Meckels Diverticulum s/p SB resection
DVTp-SCDs
CODE-Full
Dispo- [facility]H [facility]
Anticipated Discharge: 24 - 48 hours
Subjective/Interval History
-
Date of Service: October 26, 2024
Patient does has a concern for left ankle pain and bruises because of the object falling down at the left foot 2 weeks before.
He doesn't concern for abdominal pain, vomiting, nausea.
Objective Data
-
Labs:
10/26/24 16:33
10/26/24 04:44
Laboratory Results
PT 22.0 Sec (11.4-14.6) H 10/26/24 04:44
INR 1.87 10/26/24 04:44
APTT 38.3 Sec (23.4-35.0) H 10/24/24 11:05
Total Bilirubin 4.6 mg/dl (0.2-1.3) H 10/26/24 04:44
AST 61 U/L (17-59) H 10/26/24 04:44
ALT 35 U/L (0-50) 07/11/25 04:44
Alkaline Phosphatase 49 U/L (38-126) 10/26/24 04:44
Lipase 165 U/L (23-300) 10/24/24 11:05
Laboratory Results
10/26/24 10/26/24 10/26/24
00:09 04:44 08:00
WBC 10.5 9.6 Cancelled
Hgb 7.7 L 7.8 L Cancelled
Hct 22.1 L 22.0 L Cancelled
Plt Count 65 L 68 L Cancelled
PT 22.0 H
INR 1.87
Sodium 137
Potassium 3.7
Chloride 111 H
Carbon Dioxide 24
BUN 16
Creatinine 0.8
Glucose 98
Calcium 7.2 L
Total Bilirubin 4.6 H
AST 61 H
ALT 35
Alkaline Phosphatase 49
Vital Signs:
Vital Signs
Temp Pulse Resp BP Pulse Ox
98.0 F 81 15 111/67 94
10/26/24 03:32 10/26/24 06:00 10/26/24 06:00 10/26/24 06:00 10/26/24 06:00
I&O
10/24/24 10/25/24 10/26/24
06:59 06:59 06:59
Intake Total 920 / 920 2459 / 2459
Output Total 700 / 700 2225 / 2225
Balance 220 / 220 234 / 234
Review of Systems
-
History Source: Patient
Constitutional: Reports No Symptoms
EENT: Reports No Symptoms Reported
Respiratory: Reports No Symptoms
Cardiac: Reports No Symptoms
Abdomen/GI: Reports No Symptoms
Genitourinary: Reports No Symptoms
Musculoskeletal: Reports Other (Left side ankle- tenderness, bruise+)
Skin: Reports No Symptoms
Neuro: Reports No Symptoms
Endocrine: Reports No Symptoms
Allergy / Immunology: Reports No Symptoms
Psych: Reports Other
Physical Exam
-
General: Well Developed
HEENT: Normocephalic
Respiratory: Clear to Auscultation
Cardiac: Regular Rhythm
GI: Soft, Nontender and Other (capute medusa+)
Genito-urinary: No Costovertebral Tender
Musculoskeletal: No Clubbing
Skin: Other (left side ankle edema- bruises, ecchymosis present )
Neuro: AO x 3
Hematologic / Lymphatic: No Lymphadenopathy
Psych: Calm
--- NOTE | 2024-10-26 06:47 | PTCARENOTE ---
Assumed care of pt from keven RN. Pt is aaox3. MSAS ongoing, Pt currently scores a zero (see worklist). NSR on monitor. Pt's SpO2 98% on RA. IV Protonix gtt and IV Octreotide gtt infusing. Vitals signs and assessment as charted. Pt resting in bed
with call caraballo in reach.
[2024-10-26] MEDS: DUPHALAC/CHRONULAC 20 GRAMS PO (08:52)
[2024-10-26] MEDS: PROTONIX 100 IV ×2 (08:52→20:18)
[2024-10-26] MEDS: FOLVITE 1 MG PO (08:52)
[2024-10-26] MEDS: PHENOBARBITAL 97.5 MG IV (08:53)
--- NOTE | 2024-10-26 11:12 | PN.CDI ---
CDI
- -
CDI:
Physician Documentation Request
Admit Date: 10/24/24 13:00
Dear Doctor Carlos,
Clinical Indicators:
Patient admitted with bleeding varices and AUD.
10/25 GI PN, '-elevated ammonia likely mild HE'
10/25 PN, 'Patient appears groggy...AUD with high risk W/D'
10/24 - 10/25 MSAS scores: 1- 6; Ativan 2 mg IV x 2 doses; 1 mg po x 2 doses.
Lactulose 20 grams po daily ordered.
Ammonia levels:
10/24/24 10/25/24
14:57 12:15
Ammonia 75 H 58 H
Based on the above, could you clarify which, if any of the following, is the most likely etiology of the confusion/altered mental status.
Toxic Metabolic Encephalopathy due to alcohol withdrawal and hepatic encephalopathy
Hepatic encephalopathy only
Alcohol withdrawal only
Other, please specify
Use of terms such as suspected, likely, concern for, or probable (associated with a specific diagnosis that is being evaluated, monitored, or treated as if it exists) are acceptable and can be coded in the inpatient setting, when documented at the
time of discharge.
Thank you,
AARON Hughes RN
CDI Specialist
available via tiger text
Please use your independent medical judgment in providing your response.
[2024-10-26] MEDS: INDERAL 20 MG PO (11:16)
--- NOTE | 2024-10-26 11:35 | PN.CDI ---
CDI
- -
CDI:
Physician Documentation Request
Admit Date: 10/24/24 13:00
Dear Doctor Carlos,
Clinical Indicators:
Patient admitted with bleeding varices and AUD.
10/25 PN, 'Acute anemia secondary to Upper GI Bleed/Esophageal Varices'
PRBCs 2 units transfused.
Hgb/Hct trend:
10/24/24 10/25/24 10/25/24
11:05 03:47 16:15
Hgb 7.7 L 7.0 L 8.3 L
Hct 22.7 L 20.6 L* 23.5 L
Based on the above, could you clarify, type of anemia you are evaluating, monitoring and/or treating?
Acute blood loss anemia
Other, please specify
Use of terms such as suspected, likely, concern for, or probable (associated with a specific diagnosis that is being evaluated, monitored, or treated as if it exists) are acceptable and can be coded in the inpatient setting, when documented at the
time of discharge.
Thank you,
AARON Hughes RN
CDI Specialist
available via tiger text
Please use your independent medical judgment in providing your response.
--- NOTE | 2024-10-26 12:24 | PTCARENOTE ---
This RN alerted by student nurse that pt had pulled off equipment and gone into the bathroom. Pt found off monitor soaked in blood. Pt found have to have ripped apart IV tubing. Pt cleaned up and placed back in bed. IVT at bedside to replace IV. Bed
alarm placed and pt instructed that he must call before attempting to get OOB.
[2024-10-26] MEDS: STERILE WATER FOR INJECTION 10 ML IV (14:27)
[2024-10-26] MEDS: ROCEPHIN 1000 MG IV (14:27)
--- NOTE | 2024-10-26 16:30 | PTCARENOTE ---
Brendon wrap ordered to be applied to ankle fracture. D/w Resident scott Barakat to wait for ortho consult at this time.
[2024-10-26 16:45] LABS: Hematocrit 22.8 % (39.0-52.0); Hemoglobin 7.9 g/dL (13.0-18.0); Mean Corp Hgb Conc. 34.6 g/dL (33.0-37.0); Mean Corpuscular Volume 98.7 fL (80.0-94.0); Platelet Count 88 10^3/uL (130-400); Red Cell Dist. Width 15.3 % (11.5-14.5)
[2024-10-26] MEDS: LUMINAL 64.8 MG PO ×2 (16:48→21:32)
--- NOTE | 2024-10-26 18:10 | PTCARENOTE ---
Pt for transfer to tele. Report to receiving RN. Belongings collected from room. Transferred to [facility] via stretcher.
--- NOTE | 2024-10-26 18:45 | PTCARENOTE ---
Received pt in transfer from IMU; accompanied by IMU staff. Pt AAO x3, MCGRAW;able to transfer to bed with minimal assistance. Pt with _1 edema/large bruising noted lower left leg; scabbed area lower leg; SNEHAL wrap applied as ordered; LLE elevated on
pillow. Lt pedal pulse (+). PLaced on telemetry:NSR. On room air- no SOB noted. Abd soft, rounded, on full liquid idet. pt DTV- urinal at bedside. IVF's Octreotide drip @50 mcg/hr (41.7 ml/hr) via Lt forearm and Protonix drip @ 8mg/hr (10
ml/hr) infusing via Lt wrist without sx of infiltration. Oriented to 4East. Will continue to monitor.
[2024-10-26] MEDS: NEURONTIN 200 MG PO (21:31)
[2024-10-26] MEDS: INDERAL PO (22:00)
[2024-10-27] VITALS (15 sets, daily range): BP systolic 85–110; BP diastolic 45–56
[2024-10-27] MEDS: SANDOSTATIN 500.6 MCG IV (02:26)
--- NOTE | 2024-10-27 02:30 | PTCARENOTE ---
2100: Pt found to put his shirt and slippers on trying to go home 'to my family and dog'. Explain to the pt the need of Protonix and Sandostatin tonight. Also pt need to be seen by orthopedic for left ankle fracture. Pt decided to stay tonight. Will
continue to monitor the pt.
[2024-10-27 03:51] LABS: Ammonia 22 umol/L (9-30)
[2024-10-27 03:58] LABS: Hematocrit 18.6 % (39.0-52.0); Hemoglobin 6.3 g/dL (13.0-18.0); Mean Corp Hgb Conc. 33.9 g/dL (33.0-37.0); Mean Corpuscular Volume 98.9 fL (80.0-94.0); Platelet Count 78 10^3/uL (130-400); Red Cell Dist. Width 14.7 % (11.5-14.5)
--- NOTE | 2024-10-27 04:08 | W.PN.UPDATE ---
Update Note
Progress Note Update
Pt hypotensive over night. Hgb down from 7.9 to 6.3. Rx Propranolol held, transfused PRBCx1. Of note patient also got first dose of Gabapentin last night.
[2024-10-27 04:33] LABS: ALT (SGPT) 29 U/L (0-50); AST (SGOT) 48 U/L (17-59); Albumin 2.3 g/dl (3.5-5.0); Alkaline Phosphatase 45 U/L (38-126); Blood Urea Nitrogen 14 mg/dl (9-20); Calcium 6.9 mg/dl (8.4-10.2); Carbon Dioxide 25 mmol/L (22-30); Chloride 109 mmol/L (98-107); Estimated Creatinine Clearance 112 ml/min; Glucose 89 mg/dl (70-99); Potassium 4.0 mmol/L (3.5-5.1); Sodium 134 mmol/L (135-145); Total Protein 4.7 g/dl (6.3-8.2); eGFR > 60.00
--- NOTE | 2024-10-27 06:06 | PTCARENOTE ---
Pt's BP this am=85/44, 87/47. Pt denies any light headache, or dizziness. GRAY TENDER made aware, ordered labs to be drawn early. Pt's Hb=6.3. 1 unit of PRBCs ordered and infusing with no issues at this time. Will continue to monitor the pt.
[2024-10-27] MEDS: PROTONIX 100 IV (06:11)
[2024-10-27 07:29] LABS: Magnesium 1.7 mg/dl (1.6-2.3)
[2024-10-27] MEDS: DUPHALAC/CHRONULAC PO ×2 (08:29→08:36)
[2024-10-27] MEDS: LUMINAL 64.8 MG PO ×3 (08:29→21:37)
[2024-10-27] MEDS: FOLVITE 1 MG PO (08:29)
[2024-10-27] MEDS: THIAMINE INJECTION 200 MG IV (08:30)
[2024-10-27] MEDS: FLUSH (NSS) 2 FLUSH IV (08:30)
--- NOTE | 2024-10-27 09:08 | CON.ORTHO ---
Consultation
-
Date/Time Consultation Requested: November 09/1706
Date/Time Consultation Performed: November 09/0815
Requesting Provider: Carlos
Performing Provider: Nabil Birchn
Reason for Consultation: Left ankle pain
Consultation - Orthopedics
History
History of Present Illness:
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 Patient started to feel unwell yesterday
afternoon while at work. He went to the bathroom around 4:30 PM and had an episode of vomiting which bloody. He states it 'looked like the exorcist.' Patient describes vomiting 'dark red with chunks.' He has vomited every hour since then. The
emesis appeared brown at one point. EMS reports balwinder bloody emesis on their arrival which was dark red. He reports some abdominal discomfort which he attributes to the vomiting. He does not take any blood thinners. He has never been diagnosed
with liver disease/cirrhosis in the past. During admission and work-up began complaining of left ankle pain. Reports history of left ankle injuries years ago from skateboarding. On rounds this AM reports ankle feeling much better. He actually
ambulated to the bathroom today without difficulty
Past Medical History:
Kidney stones
Ulcers
Surgical History:
None
Social History:
Tobacco: Smoker
Alcohol: Daily
Personal: Single
Living: with family
Family History:
Not pertinent
ROS:
12 point negative except those mentioned in the HPI
Allergies / Home Medications
Allergy/AdvReac Type Severity Reaction Status Date / Time
No Known Allergies Allergy Unverified 09/01/12 15:17
�Medication �Instructions �Recorded
No Meds [No Current Medications] 10/24/24
Vital Signs / Lab Results
Temp Pulse Resp BP Pulse Ox
97.8 F 77 18 93/55 99
10/27/24 08:15 10/27/24 08:45 10/27/24 08:15 10/27/24 08:45 10/27/24 08:45
10/27/24 03:31
Assessment / Plan
PE: Afeb. In bed. Left ankle skin intact. No abnormality noted. Mildly edematous medially. Some mild pain over the PTT. No significant pain over the anterior ankle at the talas. Ankle and subtalar joints move well. Negative drawer. Calf supple. DNVI
LLE
Xrays: Old talar dome avulsion. Soft tissue swelling medially
Impression: Left posterior tibial tendonitis. Old talar dome avulsion
Plan: Discussed with the patient bedside. His ankle symptoms are much improved. Elevate and ice for pain control. May WBAT. I offered him a boot for comfort, but he declined. Continue Tx per the primary team, GI, etc. If symptoms recur boot could be
placed. No need, in my opinion, for PT/OT while admitted. When optimized and D/c, if symptoms recur, would be happy to see him as an outpatient. Orthopaedics to sign off for now.
--- NOTE | 2024-10-27 09:12 | W.PN.GI.CBS2 ---
Today's Communication / Plan
-
Please see assessment and plan for details.
Assessment / Plan
-
1. GI bleed: Secondary to esophageal varices, unclear if cirrhosis versus severe alcoholic hepatitis with portal hypertension, status post banding. His blood count was low overnight, status post 1 unit of PRBCs now, though only had brown stool and
no further melena, now hemodynamically stable. He is completing day 3 of octreotide and PPI. Ultrasound Doppler showed no thrombus though was limited. Hepatitis panel negative, other serologies pending. LFTs continue to improve. Propranolol was
held given his low blood pressure overnight. At this point we will await morning hemoglobin, if stable then will DC octreotide and PPI drip, and advance diet, likely able to DC tomorrow to plan repeat EGD in 3 to 4 weeks for surveillance and
further outpatient workup.
Subjective
Subjective
Date of Service: October 27, 2024
Patient doing okay, had repeat labs overnight that showed decrease in hemoglobin was relatively hypotensive to the 80s, though now resolved. He did receive 1 unit PRBCs. He did have a bowel movement overnight that was brown, with no further
melena. He denies any lightheadedness or dizziness, fever or chills.
Objective
Data Reviewed
Laboratory Data:
Laboratory Results
10/27/24 03:31
Laboratory Results
PT 22.0 Sec (11.4-14.6) H 10/26/24 04:44
INR 1.87 10/26/24 04:44
APTT 38.3 Sec (23.4-35.0) H 10/24/24 11:05
Phosphorus 3.7 mg/dl (2.5-4.5) 10/24/24 16:36
Magnesium 1.7 mg/dl (1.6-2.3) 10/27/24 03:31
Total Bilirubin 3.6 mg/dl (0.2-1.3) H 10/27/24 03:31
AST 48 U/L (17-59) 10/27/24 03:31
ALT 29 U/L (0-50) 10/27/24 03:31
Alkaline Phosphatase 45 U/L (38-126) 10/27/24 03:31
Lipase 165 U/L (23-300) 10/24/24 11:05
Vital Signs and I&O:
Vital Signs
Temp Pulse Resp BP Pulse Ox
97.8 F 77 18 93/55 99
10/27/24 08:15 10/27/24 08:45 10/27/24 08:15 10/27/24 08:45 10/27/24 08:45
I&O
10/26/24 10/27/24 10/28/24
06:59 06:59 06:59
Intake Total 2459 / 2459 1308.7 / 1308.7 250 / 250
Output Total 2225 / 2225 525 / 525
Balance 234 / 234 783.7 / 783.7 250 / 250
Physical Exam
Physical Exam
General: NAD
Abdomen: normal bowel sounds, soft, no tenderness, no masses or bruits, no ascites
[2024-10-27 10:19] LABS: Hematocrit 23.4 % (39.0-52.0); Hemoglobin 8.1 g/dL (13.0-18.0)
[2024-10-27 10:21] LABS: INR 1.87; PT 21.7 Sec (11.4-14.6)
[2024-10-27] MEDS: CALCIUM CHLORIDE 10% SYRINGE 70 MG IV (10:25)
--- NOTE | 2024-10-27 11:00 | PTCARENOTE ---
Pt's BP at this time 88/46, pt remains asymptomatic. Dr. Campbell aware.
Pt's IV Thiamine completed after 8 doses. Pt is ordered po Thiamine to start this evening. Dr. Campbell ok with him transitioning to po Thiamine without getting the 9th dose of IV Thiamine.
Pt refused Lactulose this am. Pt did have one loose BM this am, moderate amount, brown in color per pt. Pt flushed prior to RN seeing BM. Made Dr. Campbell aware.
--- NOTE | 2024-10-27 13:47 | W.PN.HOSP.TC ---
Today's Communication/Plan
-
Audio Installer referral in future
Calcium
Assessment / Plan
Assessment / Plan
# Acute Anemia secondary to Upper GI Bleed:
-Hb- 7.9, HCT- 22.8, platelet Count- 78 L; PT- 22; INR= 1.87
- Chronic anemia
- Patient hemoglobin dropped to 6.3> transfused 1 pRBC> post transfusion Hb 8.1
- continue to monitor H&H
- Endoscopy mentioned stage 3 esophageal varices with ligation and 3 banding placed.
- Octreotide iv 72 hrs course completed,
- Propranolol held currently because of drop in blood pressure.
- Planning to continue propranolol in future to prevent variceal bleeding in future.
- Advised to follow up with EGD scope within 4 weeks in future for surveillance and further outpatient follow up.
- Calcium 6.9 low treated with Calcium Chloride 2000mg in NSS @60 ml/hr IV.
# AUD with high risk W/D
- per patient drinks 1/2 bottle captain abby per day
- start MSAS protocol- 2 today morning. ( Lorazepam is given PRN)
- started high dose thiamine, continued folate and ceftriaxone 1000mg iv DAY 4
- started phenobarbitone taper as has high likelihood of withdrawal.
- gabapentin 200mg PO for the pain on hold.
# Acute Alcoholic Hepatitis and acute liver failure
- AST, ALT Total billirubin level improvised comparatively from yesterday.
- MELD-na-21,
- INR 1.8 albumin 2.7 reduced comparatively from previous results.
- monitor closely for signs of jaundice,
- propranolol 20 mg BID holded after pt blood pressure dropped to 85/45. manual blood pressure measurement around 14:14 PM was around 102/56.
- pt receiving Lactulose 20 mg to reduce the future hepatic encephalopathy.
- Doppler USG: Mild hepatomegaly with small left lobe hepatic cyst.
# Tobacco Abuse
- advised to quit
- offer patch
# Left Ankle fracture:
Left ankle swelling,4.8 mm chronic nonunited cortical fracture of the dorsal talar neck.
Adviced for ice pack, elevate the foot, SNEHAL wrap done for the stabilization. Patient refused boot for comfort. Advised to follow with PCP in future.
# Hypomagnesemia:
- Magnesium level now is 1.7
# H/O Meckels Diverticulum s/p SB resection
DVTp-SCDs
CODE-Full
[facility]po- [facility]
Anticipated Discharge: Within 24 hours
Subjective/Interval History
-
Date of Service: October 27, 2024
Patient has a concern for chills, he had a good sleep,wants to eat solid foods. He had bowel movement today with maroon color stools.
He doesn't had a concerns for ankle pain, chest pain, dyspnea, palpitation, dizziness.
Objective Data
-
Labs:
10/27/24 09:52
10/27/24 03:31
Laboratory Results
PT 21.7 Sec (11.4-14.6) H 10/27/24 09:52
INR 1.87 10/27/24 09:52
APTT 38.3 Sec (23.4-35.0) H 10/24/24 11:05
Total Bilirubin 3.6 mg/dl (0.2-1.3) H 10/27/24 03:31
AST 48 U/L (17-59) 10/27/24 03:31
ALT 29 U/L (0-50) 10/27/24 03:31
Alkaline Phosphatase 45 U/L (38-126) 10/27/24 03:31
Lipase 165 U/L (23-300) 10/24/24 11:05
Laboratory Results
10/27/24 10/27/24
03:31 09:52
WBC 11.3 H
Hgb 6.3 L* D 8.1 L D
Hct 18.6 L* 23.4 L
Plt Count 78 L
PT 21.7 H
INR 1.87
Sodium 134 L
Potassium 4.0
Chloride 109 H
Carbon Dioxide 25
BUN 14
Creatinine 0.8
Glucose 89
Calcium 6.9 L*
Total Bilirubin 3.6 H
AST 48
ALT 29
Alkaline Phosphatase 45
Vital Signs:
Vital Signs
Temp Pulse Resp BP Pulse Ox
99.5 F 79 18 100/56 98
10/27/24 12:25 10/27/24 11:54 10/27/24 11:54 10/27/24 11:54 10/27/24 11:54
I&O
10/26/24 10/27/24 10/28/24
06:59 06:59 06:59
Intake Total 2459 / 2459 1308.7 / 1308.7 250 / 250
Output Total 2225 / 2225 525 / 525 250 / 250
Balance 234 / 234 783.7 / 783.7 0 / 0
Review of Systems
-
History Source: Patient
Constitutional: Reports No Symptoms
Respiratory: Reports No Symptoms
Cardiac: Reports No Symptoms
Abdomen/GI: Reports No Symptoms
Genitourinary: Reports No Symptoms
Musculoskeletal: Reports No Symptoms
Skin: Reports No Symptoms
Neuro: Reports No Symptoms
Endocrine: Reports No Symptoms
Hematologic / Lymphatic: Reports No Symptoms
Allergy / Immunology: Reports No Symptoms
Physical Exam
-
General: Well Developed
HEENT: Moist Mucous Membranes
Respiratory: Clear to Auscultation
Cardiac: Regular Rhythm and S1/S2
GI: Soft, Nontender, Normal Bowel Sounds and Other (capute medusa ++)
Rectal: Brown
Genito-urinary: No Costovertebral Tender
Skin: Warm
Neuro: AO x 3
Hematologic / Lymphatic: No Lymphadenopathy
Psych: Calm
--- NOTE | 2024-10-27 14:10 | PTCARENOTE ---
Pt's resident ordered to do every [address] Campbell wants manual BPs done every 4hrs, updated order.
[2024-10-27] MEDS: STERILE WATER FOR INJECTION 10 ML IV (15:36)
[2024-10-27] MEDS: ROCEPHIN 1000 MG IV (15:36)
--- NOTE | 2024-10-27 15:47 | W.PN.HOSP.TC ---
Today's Communication/Plan
-
In future manual blood pressure for today.
Assessment / Plan
Assessment / Plan
# Acute Anemia secondary to Upper GI Bleed:
-Hb- 7.9, HCT- 22.8, platelet Count- 78 L; PT- 22; INR= 1.87
- Chronic anemia
- Patient hemoglobin dropped to 6.3> transfused 1 pRBC> post transfusion Hb 8.1
- continue to monitor H&H
- Endoscopy mentioned stage 3 esophageal varices with ligation and 3 banding placed.
- Octreotide iv 72 hrs course completed,
- Propranolol held currently because of drop in blood pressure.
- Planning to continue propranolol in future to prevent variceal bleeding in future.
- Advised to follow up with EGD scope within 4 weeks in future for surveillance and further outpatient follow up.
- Calcium 6.9 low treated with Calcium Chloride 2000mg in NSS @60 ml/hr IV.
# AUD with high risk W/D
- per patient drinks 1/2 bottle captain abby per day
- start MSAS protocol- 2 today morning. ( Lorazepam is given PRN)
- started high dose thiamine, continued folate and ceftriaxone 1000mg iv DAY 4
- started phenobarbitone taper as has high likelihood of withdrawal.
- gabapentin 200mg PO for the pain on hold.
# Acute Alcoholic Hepatitis and acute liver failure
- AST, ALT Total billirubin level improvised comparatively from yesterday.
- MELD-na-21,
- INR 1.8 albumin 2.7 reduced comparatively from previous results.
- monitor closely for signs of jaundice,
- propranolol 20 mg BID holded after pt blood pressure dropped to 85/45. manual blood pressure measurement around 14:14 PM was around 102/56.
- pt receiving Lactulose 20 mg to reduce the future hepatic encephalopathy.
- Doppler USG: Mild hepatomegaly with small left lobe hepatic cyst.
# Tobacco Abuse
- advised to quit
- offer patch
# Left Ankle fracture:
Left ankle swelling,4.8 mm chronic nonunited cortical fracture of the dorsal talar neck.
Adviced for ice pack, elevate the foot, SNEHAL wrap done for the stabilization. Patient refused boot for comfort. Advised to follow with PCP in future.
# Hypomagnesemia:
- Magnesium level now is 1.7
# H/O Meckels Diverticulum s/p SB resection
DVTp-SCDs
CODE-Full
[facility]po- [facility]
Anticipated Discharge: Within 24 hours
Subjective/Interval History
-
Date of Service: October 27
Patient had a chills at overnight, apart from that he had bowel movement, left side ankle pain reduced
Objective Data
-
Labs:
10/27/24 09:52
10/27/24 03:31
Laboratory Results
PT 21.7 Sec (11.4-14.6) H 10/27/24 09:52
INR 1.87 10/27/24 09:52
APTT 38.3 Sec (23.4-35.0) H 10/24/24 11:05
Total Bilirubin 3.6 mg/dl (0.2-1.3) H 10/27/24 03:31
AST 48 U/L (17-59) 10/27/24 03:31
ALT 29 U/L (0-50) 10/27/24 03:31
Alkaline Phosphatase 45 U/L (38-126) 10/27/24 03:31
Lipase 165 U/L (23-300) 10/24/24 11:05
Laboratory Results
10/27/24 10/27/24
03:31 09:52
WBC 11.3 H
Hgb 6.3 L* D 8.1 L D
Hct 18.6 L* 23.4 L
Plt Count 78 L
PT 21.7 H
INR 1.87
Sodium 134 L
Potassium 4.0
Chloride 109 H
Carbon Dioxide 25
BUN 14
Creatinine 0.8
Glucose 89
Calcium 6.9 L*
Total Bilirubin 3.6 H
AST 48
ALT 29
Alkaline Phosphatase 45
Vital Signs:
Vital Signs
Temp Pulse Resp BP Pulse Ox
99.5 F 79 18 102/56 98
10/27/24 12:25 10/27/24 11:54 10/27/24 11:54 10/27/24 14:14 10/27/24 11:54
I&O
10/26/24 10/27/24 10/28/24
06:59 06:59 06:59
Intake Total 2459 / 2459 1308.7 / 1308.7 250 / 250
Output Total 2225 / 2225 525 / 525 250 / 250
Balance 234 / 234 783.7 / 783.7 0 / 0
Review of Systems
-
History Source: Patient
Respiratory: Reports No Symptoms
Cardiac: Reports No Symptoms
Abdomen/GI: Reports No Symptoms
Genitourinary: Reports No Symptoms
Musculoskeletal: Reports No Symptoms
Skin: Reports No Symptoms
Neuro: Reports No Symptoms
Endocrine: Reports No Symptoms
Allergy / Immunology: Reports No Symptoms
Physical Exam
-
General: No Apparent Distress
Respiratory: Clear to Auscultation
Cardiac: Regular Rhythm and S1/S2
GI: Soft, Nontender and Other (Capute medusa)
Genito-urinary: No Costovertebral Tender
Skin: Warm
Neuro: AO x 3
Hematologic / Lymphatic: No Lymphadenopathy
Psych: Calm
[2024-10-27] MEDS: VITAMIN B1 100 MG PO (20:25)
[2024-10-27] MEDS: TYLENOL 650 MG PO (23:43)
[2024-10-28 03:28] VITALS: BP 92/56
[2024-10-28 06:42] LABS: INR 1.82; PT 21.3 Sec (11.4-14.6)
--- NOTE | 2024-10-28 06:42 | W.PN.HOSP.TC ---
Today's Communication/Plan
-
Discharge
Assessment / Plan
Assessment / Plan
# Acute Anemia secondary to Upper GI Bleed:
-Hb- 7.9, HCT- 22.8, platelet Count- 78 L; PT- 22; INR= 1.87
- Chronic anemia
- Patient hemoglobin dropped to 6.3> transfused 1 pRBC (10/27)> post transfusion Hb 8.1> dropped to 7.1(06.14 AM)> repeat HB on 11.19AM improved to 7.6
- Endoscopy mentioned stage 3 esophageal varices with ligation and 3 banding placed.
- Octreotide iv 72 hrs course completed,
- Propranolol 10 mg BID started and planning to continue propranolol in future to prevent variceal bleeding in future.
- Advised to follow up with EGD scope within 4 weeks in future for surveillance and further outpatient follow up.
- Calcium 6.9 low treated with Calcium Chloride 2000mg in NSS @60 ml/hr IV today.
# AUD with high risk W/D
- per patient drinks 1/2 bottle captain abby per day
- start MSAS protocol- 2 today morning. ( Lorazepam is given PRN)
- started high dose thiamine, continued folate and ceftriaxone 1000mg iv switched to Oral Ciprofloxacin 500mg BID for further 3 days while on discharge.
- started Phenobarbital 32.4mg tablet every 8 hours for 2 days. Advised NOT TO DRINK WHILE TAKING PHENOBARBITAL as it can cause respiratory depression and possibly .
- gabapentin 200mg PO for the pain on hold.
# Acute Alcoholic Hepatitis and acute liver failure
- AST, ALT Total billirubin level improvised comparatively from yesterday.
- MELD-na-21,
- INR 1.8 albumin 2.7 reduced comparatively from previous results.
- monitor closely for signs of jaundice,
- propranolol 20 mg BID holded after pt blood pressure dropped to 85/45. manual blood pressure measurement around 14:14 PM was around 102/56.
- pt receiving Lactulose 20 mg to reduce the future hepatic encephalopathy.
- Doppler USG: Mild hepatomegaly with small left lobe hepatic cyst.
# Tobacco Abuse
- advised to quit
- offer patch
# Left Ankle fracture:
Left ankle swelling,4.8 mm chronic nonunited cortical fracture of the dorsal talar neck.
Adviced for ice pack, elevate the foot, SNEHAL wrap done for the stabilization. Patient refused boot for comfort. Advised to follow with PCP in future.
# Hypomagnesemia:
- Magnesium level now is 1.7
# H/O Meckels Diverticulum s/p SB resection
DVTp-SCDs
CODE-Full
[facility]po- [facility]
Anticipated Discharge: Today
Subjective/Interval History
-
Date of Service: October 28, 2024
Today patient feels good, Overnight he had fever which as resolved with tylenol.
Objective Data
-
Labs:
Laboratory Results
10/28/24 11:19
10/28/24 06:14
Laboratory Results
PT 21.3 Sec (11.4-14.6) H 10/28/24 06:14
INR 1.82 10/28/24 06:14
APTT 38.3 Sec (23.4-35.0) H 10/24/24 11:05
Total Bilirubin 3.5 mg/dl (0.2-1.3) H 10/28/24 06:14
AST 48 U/L (17-59) 10/28/24 06:14
ALT 31 U/L (0-50) 10/28/24 06:14
Alkaline Phosphatase 51 U/L (38-126) 10/28/24 06:14
Lipase 165 U/L (23-300) 10/24/24 11:05
Vital Signs:
Vital Signs
Temp Pulse Resp BP Pulse Ox
98.2 F 78 14 92/56 96
10/28/24 03:28 10/28/24 03:28 10/28/24 03:28 10/28/24 03:28 10/28/24 03:28
I&O
10/26/24 10/27/24 10/28/24
06:59 06:59 06:59
Intake Total 2459 / 2459 1308.7 / 1308.7 1006.8 / 1006.8
Output Total 2225 / 2225 525 / 525 650 / 650
Balance 234 / 234 783.7 / 783.7 356.8 / 356.8
Review of Systems
-
History Source: Patient
Constitutional: Reports Fever (overnight fever got reduced by tylenol)
Physical Exam
-
General: No Apparent Distress
Respiratory: Clear to Auscultation
Cardiac: Regular Rhythm and S1/S2
GI: Soft, Nontender and Nondistended
Genito-urinary: No Costovertebral Tender
Skin: Warm
Neuro: AO x 3
Hematologic / Lymphatic: No Lymphadenopathy
Psych: Calm
[2024-10-28 06:44] LABS: Hematocrit 20.9 % (39.0-52.0); Hemoglobin 7.1 g/dL (13.0-18.0); Mean Corp Hgb Conc. 34.0 g/dL (33.0-37.0); Mean Corpuscular Volume 92.5 fL (80.0-94.0); Nucleated Red Blood Cells % 0.3 % (-); Platelet Count 86 10^3/uL (130-400); Red Cell Dist. Width 21.9 % (11.5-14.5)
[2024-10-28 06:47] LABS: Ammonia 36 umol/L (9-30)
[2024-10-28 07:04] LABS: ALT (SGPT) 31 U/L (0-50); AST (SGOT) 48 U/L (17-59); Albumin 2.3 g/dl (3.5-5.0); Alkaline Phosphatase 51 U/L (38-126); Blood Urea Nitrogen 13 mg/dl (9-20); Calcium 7.7 mg/dl (8.4-10.2); Carbon Dioxide 24 mmol/L (22-30); Chloride 106 mmol/L (98-107); Estimated Creatinine Clearance 112 ml/min; Glucose 88 mg/dl (70-99); Potassium 3.9 mmol/L (3.5-5.1); Sodium 132 mmol/L (135-145); Total Protein 4.8 g/dl (6.3-8.2); eGFR > 60.00
[2024-10-28 07:10] VITALS: BP 102/58
[2024-10-28 07:45] VITALS: BP 108/56
[2024-10-28] MEDS: PROTONIX 40 MG PO (08:12)
[2024-10-28] MEDS: FOLVITE 1 MG PO (08:12)
[2024-10-28] MEDS: VITAMIN B1 100 MG PO (08:13)
[2024-10-28] MEDS: LUMINAL 64.8 MG PO (08:13)
--- NOTE | 2024-10-28 08:13 | VATNOTE ---
Patient requesting PIV removal, reviewed hgb drop overnight and continued orders for IV medications. Expressed understanding.
[2024-10-28] MEDS: DUPHALAC/CHRONULAC PO (08:19)
--- NOTE | 2024-10-28 09:14 | W.PN.GI.CBS2 ---
Today's Communication / Plan
-
Please see assessment and plan for details.
Assessment / Plan
-
1. GI bleed: Secondary to esophageal varices, unclear if cirrhosis versus severe alcoholic hepatitis with portal hypertension, status post banding. His hemoglobin is varied, though no further signs of gross bleeding, brown stool yesterday,
hemodynamically stable. At this point we will repeat hemoglobin 11, and if stable and is okay to DC from GI standpoint. Propranolol was held with low blood pressure, and his resting heart rate is in the 60s, would DC without propranolol. He needs
3 more days of antibiotics post banding, can DC with Cipro for 3 days. Our office will be in touch to plan repeat EGD in 3 to 4 weeks for surveillance and further outpatient workup.
Subjective
Subjective
Date of Service: October 28, 2024
Patient feeling well overall, no bowel movement since yesterday which was brown, no nausea, vomiting, [place] pain, fever chills, lightheadedness or dizziness.
Objective
Data Reviewed
Laboratory Data:
Laboratory Results
10/28/24 06:14
10/28/24 06:14
Laboratory Results
PT 21.3 Sec (11.4-14.6) H 10/28/24 06:14
INR 1.82 10/28/24 06:14
APTT 38.3 Sec (23.4-35.0) H 10/24/24 11:05
Phosphorus 3.7 mg/dl (2.5-4.5) 10/24/24 16:36
Magnesium 1.7 mg/dl (1.6-2.3) 10/27/24 03:31
Total Bilirubin 3.5 mg/dl (0.2-1.3) H 10/28/24 06:14
AST 48 U/L (17-59) 10/28/24 06:14
ALT 31 U/L (0-50) 10/28/24 06:14
Alkaline Phosphatase 51 U/L (38-126) 10/28/24 06:14
Lipase 165 U/L (23-300) 10/24/24 11:05
Vital Signs and I&O:
Vital Signs
Temp Pulse Resp BP Pulse Ox
98.2 F 66 16 108/56 97
10/28/24 07:10 10/28/24 07:10 10/28/24 07:10 10/28/24 07:45 10/28/24 07:10
I&O
10/27/24 10/28/24 10/29/24
06:59 06:59 06:59
Intake Total 1308.7 / 1308.7 1006.8 / 1006.8
Output Total 525 / 525 650 / 650
Balance 783.7 / 783.7 356.8 / 356.8
Physical Exam
Physical Exam
General: NAD
Abdomen: normal bowel sounds, soft, no tenderness, no masses or bruits, no ascites
[2024-10-28 11:58] LABS: Hematocrit 22.4 % (39.0-52.0); Hemoglobin 7.6 g/dL (13.0-18.0); Mean Corp Hgb Conc. 33.9 g/dL (33.0-37.0); Mean Corpuscular Volume 92.9 fL (80.0-94.0); Platelet Count 103 10^3/uL (130-400); Red Cell Dist. Width 22.0 % (11.5-14.5)
[2024-10-28 12:00] VITALS: BP 99/54
--- NOTE | 2024-10-28 16:03 | CM ---
Patient with Dx Anemia secondary to UGI Bleed, Acute Alcoholic Hepatitis and acute liver failure, Left Ankle fracture- SNEHAL wrap done for the stabilization/Patient refused boot for comfort. Room air. Per nurse; A/O, ambulatory.
Spoke with patient who was preparing for discharge. The patient says he feels ready for discharge home today. IMM completed. The fiancee will provide transport home.
No CM d/c needs identified.
Plan home today.
--- NOTE | 2024-10-28 18:53 | W.DCSUMMARY ---
Discharge Summary
Discharge Data
Date of Admission: 10/24/24
Date of Discharge: 10/28/24
Total time spent discharging patient (in min): 15 mins
-
Pending Results: No
Hospital Course
Discharging Physician : Dr Wayne Gonzalez
Dr Marquez Campbell DO
Disposition : Home
Primary care physician : Dayanna El
Principal Discharge diagnosis : Acute Anemia secondary to Upper GastroIntestinal bleeding.
Ankle Fracture : Object felll on his left foot a week ago at his work place. Ortho consulted with the recommendation for SNEHAL wrap, ice pack, analgesics.
Chronic Discharge diagnosis : Alcohol Withdrawal
Hospital Course : On 10/24/24 44 yr old male arrived to the ER with history of bloody vomiting which was started on previous day night followed by every one hour episodes, he was feeling dizziness adn blurry vision when he was reported to the
hospital. Vomiting is associated with mild abdominal discomfort. Patient also mentioned he drinks alcohol everyday 1/2 bottle of [employer], and his last drink were a day ago of the symptoms. His blood pressure were 113/61 Initial blood work up
done showed Hb-7.7, 1 pRBC transfused. While on Endoscopy procedure placed with 3 bands were placed. Octreotide 50mcg IV, Pantoprazole 80 mg IV,Ceftriaxone 1000mg, lactulose started. His MSAS score were around 4 when he arrived. Alcohol withdrawal
treatment also started which includes thiamine, folic acid, lorazepam(as per needed), phenobarbitone were given. patient received total 3 pRBC for Acute anemia secondary to UPPER GIT bleeding at the course of admission. Propranolol 20 mg BID started
while on hospitalization to prevent future variceal bleeding. While on discharge patient was advised to Take one Phenobarbital 32.4mg tablet every 8 hours for 2 days, NOT DRINK WHILE TAKING PHENOBARBITAL as it can cause respiratory depression and
possibly . To Take one Ciprofloxacin 500mg tablet every 12 hours for 3 days. To Take one Pantoprazole 40mg tablet every 12 hours until seen by Housing Development Specialist or instructed to stop by a physician. Educated regarding the medications usage
follows: Ton Take one half Propranolol 20mg tablet (10mg) every 12 hours until otherwise instructed by PCP or GI doc for prevention of esophageal variceal bleeding. If he experiences lightheadedness, dizziness, passing out, or weakness while taking
this medication, advised to contact primary care doctor or return to the ED. If he has a blood pressure cuff at home, advised to check blood pressure during one of these episodes. If the top number is less than 85, advised NOT to take the
medication and to call his doctor. Follow up with Housing Development Specialist in future for EGDscopy within 4 weeks of the discharge.
Important imaging findings :
Doppler evaluation with high resistance hepatic artery waveform, biphasic normal directional in caliber hepatic vein blood flow as well as hepatofugal portal vein blood flow.
Ankle Xray: Severe soft tissue swelling and subcutaneous edema in the medial left ankle and dorsal left foot.
2. 4.8 mm chronic nonunited cortical fracture of the dorsal talar neck.
Procedure findings :
On 10/24/24 Endoscopy procedure findings follows -Grade III varices with stigmata of recent bleeding were found in the middle third of the esophagus and in the lower third of the esophagus.
They were large in size. Red twyla signs were present. Two bands were successfully placed with complete eradication, resulting in deflation of varices. There was no bleeding at the end of the procedure. 2 bands were fired around one varix. A
total of 3 bands were used during the procedure.
Discharge Plan
-
Patient Disposition: Home (Routine Discharge)
Discharge Diagnosis/Procedures: Acute Upper GI Bleed, Bleeding Esophageal Varices, Acute Alcohol Withdrawal
Condition: Good
Diet: As tolerated
Activity: No restrictions
Driving Restrictions: As prior to admission
Referrals:
Marquez Massey MD [Active, Gastroenterology]
Referral Note: 3-4 weeks for repeat EGD
Shakir Estrada MD [Active, Orthopedics] - in two to four weeks
Dayanna El PA-C [Family Provider, General]
Additional Discharge Medication Instructions: Follow up with PCP within 1 week
MEDICATION:
1) Take one Phenobarbital 32.4mg tablet every 8 hours for 2 days. DO NOT DRINK WHILE TAKING PHENOBARBITAL as it can cause respiratory depression and possibly .
2) Take one Ciprofloxacin 500mg tablet every 12 hours for 3 days.
3) Take one Pantoprazole 40mg tablet every 12 hours until seen by Housing Development Specialist or instructed to stop by a physician.
4) Take one half Propranolol 20mg tablet (10mg) every 12 hours until otherwise instructed by PCP or GI doc for prevention of esophageal variceal bleeding. If you experience lightheadedness, dizziness, passing out, or weakness while taking this
medication, please contact your primary care doctor or return to the ED. If you have a blood pressure cuff at home, please check your blood pressure during one of these episodes. If the top number is less than 85, do NOT take the medication and call
your doctor.
Prescriptions:
New
pantoprazole 40 mg Tablet,Delayed Release (Dr/Ec)
40 mg PO BID 30 Days Qty: 60 0RF
propranolol 20 mg Tablet
10 mg PO BID 90 Days Qty: 90 0RF
ciprofloxacin HCl 500 mg tablet
500 mg PO BID 3 Days Qty: 6 0RF
phenobarbital 32.4 mg tablet
32.4 mg PO TID 2 Days Qty: 6 0RF
Discharge Orders:
Discharge Patient (As Directed); Ordered 10/28/24
Ordered By: Sahil Rojas
Discharge Date and Time
Discharge Date/Time: 10/28/24 14:24
Print Language: HONG KONGER
== END 2024-10-28 14:24 | disposition home or self-care (01) | DRG 432 ==
LOC: 4 EAST ACU 13:00
PROVIDERS: Internal Medicine Gastroenterology; Nurse Practitioner Adult Health; Physician Assistant; ADMITTING PHYSICIAN Family Medicine; ATTENDING PHYSICIAN Internal Medicine; CONSULT PHYSICIAN Internal Medicine; CONSULT PHYSICIAN Student in an Organized Health Care Education/Training Program; EMERGENCY PHYSICIAN Emergency Medicine; FAMILY PHYSICIAN Physician Assistant
PROC: 30233N1 Transfusion of Nonautologous Red Blood Cells into Peripheral Vein, Percutaneous Approach (ICD-10-PCS; 2024-10-24)
PROC: 06L38CZ Occlusion of Esophageal Vein with Extraluminal Device, Via Natural or Artificial Opening Endoscopic (ICD-10-PCS; 2024-10-24)
DX: K70.30 Alcoholic cirrhosis of liver without ascites (principal); G92.8 Other toxic encephalopathy; I85.11 Secondary esophageal varices with bleeding; K72.00 Acute and subacute hepatic failure without coma; D62 Acute posthemorrhagic anemia; F10.139 Alcohol abuse with withdrawal, unspecified; K76.6 Portal hypertension; D68.9 Coagulation defect, unspecified; K70.10 Alcoholic hepatitis without ascites; M76.822 Posterior tibial tendinitis, left leg; K76.82 Hepatic encephalopathy; E83.42 Hypomagnesemia; K31.89 Other diseases of stomach and duodenum; D69.59 Other secondary thrombocytopenia; F17.200 Nicotine dependence, unspecified, uncomplicated; Z79.899 Other long term (current) drug therapy; Z87.442 Personal history of urinary calculi; Z90.49 Acquired absence of other specified parts of digestive tract
CPT/HCPCS: 71045; 73600; 76700; 80053; 80306; 80307; 81003; 82077; 82140; 82390; 82728; 83540; 83550; 83690; 83735; 83970; 84100; 85014; 85018; 85025; 85027; 85610; 85730; 86704; 86706; 86708; 86803; 86850; 86900; 86901; 86920; 87040; 87340; 93005; 93306; 93975; 96365; 96375; 99291; 99406; P9016

== ENCOUNTER 2024-11-21 06:19 | Day surgery (SDC) | payer OTHER, SELFPAY ==
[2024-11-21 13:15] VITALS: BP 118/64; BMI 21.6
[2024-11-21 13:20] VITALS: BMI 21.6
[2024-11-21 15:25] VITALS: BP 109/61
[2024-11-21 15:30] VITALS: BP 114/73
[2024-11-21 15:45] VITALS: BP 122/79
== END 2024-11-21 16:00 | disposition home or self-care (01) ==
LOC: GI 06:19
PROVIDERS: ATTENDING PHYSICIAN Internal Medicine
DX: I85.00 Esophageal varices without bleeding (principal); K76.6 Portal hypertension; K31.89 Other diseases of stomach and duodenum
CPT/HCPCS: 43239; 88305; 88342

== ENCOUNTER 2024-12-25 17:22 | Inpatient (IN) | payer OTHER, SELFPAY ==
[2024-12-25] VITALS (36 sets, daily range): BP systolic 104–131; BP diastolic 51–97; BMI 20.5
[2024-12-25 15:20] LABS: APTT 38.4 Sec (23.4-35.0); Hematocrit 21.7 % (39.0-52.0); Hemoglobin 6.6 g/dL (13.0-18.0); INR 1.97; Mean Corp Hgb Conc. 30.4 g/dL (33.0-37.0); Mean Corpuscular Volume 79.5 fL (80.0-94.0); Nucleated Red Blood Cells % 0 % (-); PT 22.6 Sec (11.4-14.6); Platelet Count 163 10^3/uL (130-400); Red Cell Dist. Width 18.0 % (11.5-14.5)
[2024-12-25 15:22] LABS: ALT (SGPT) 24 U/L (0-50); AST (SGOT) 31 U/L (17-59); Albumin 3.3 g/dl (3.5-5.0); Alkaline Phosphatase 58 U/L (38-126); Blood Urea Nitrogen 19 mg/dl (9-20); Calcium 8.7 mg/dl (8.4-10.2); Carbon Dioxide 19 mmol/L (22-30); Estimated Creatinine Clearance > 125 ml/min; Glucose 133 mg/dl (70-99); Total Protein 6.2 g/dl (6.3-8.2); eGFR > 60.00
[2024-12-25 15:39] LABS: Chloride 111 mmol/L (98-107); Potassium 4.4 mmol/L (3.5-5.1); Sodium 139 mmol/L (135-145)
--- NOTE | 2024-12-25 16:04 | ED.GENMED ---
History of Present Illness
General
Chief Complaint: Vomiting Blood
Source: patient and records
Exam Limitations: none
Time Seen by Provider: 12/25/24 15:44
Nursing documentation reviewed up to this point in time: agreed with
History of Present Illness
History of Present Illness:
44-year-old male with a past medical history as noted significant for prior alcohol abuse (he says sober since October), prior admission for variceal bleeding presents to the ER for evaluation of hematemesis. Patient was notably admitted in October of
this year for hematemesis and anemia and ultimately after endoscopy was found to have varices that were banded. He presents to the ER today for evaluation of hematemesis once again. He says he has not had any issues with GI bleeding since this
admission in October. This morning woke up and was feeling weak and nauseated and had 2 episodes of hematemesis�she says initially dark brown-red emesis followed by bright red blood on the second episode. He also had 2 episodes of dark stools today.
He says he has been feeling fatigued, mildly dizzy/short of breath. No other acute symptoms such as chest pain, abdominal pain. He is not on any blood thinners.
Past History
Past History
ED Past Medical History: Other (Kidney stones, Ulcers); Negative Asthma, HTN, Hypercholesterolemia or NIDDM
ED Past Surgical History: None
Social History
Tobacco: Smoker
Alcohol: Daily
Personal: Single
Living: with family
Review of Systems
Review of Systems
All Other Systems: ROS reviewed and negative except as documented in HPI and ROS
Constitutional: Reports fatigue; Denies fever
Respiratory: Reports trouble breathing; Denies cough
Cardiac: Denies chest pain
ABD/GI: Reports nausea, vomiting and black stools; Denies abdominal pain
: Denies flank pain
Musculoskeletal: Denies neck pain or back pain
Neurological: Reports dizzy; Denies headache
Phy Exam
Physical Exam
Physical Exam:
General: Awake, alert, oriented x3; no acute distress
Head: Normocephalic, atraumatic
Eyes: Conjunctiva normal, sclera anicteric
Throat: Airway intact, handling secretions
Neck: Trachea midline, supple without meningismus
Lungs: Clear to auscultation bilaterally, no wheezing, rales, rhonchi
Heart: Tachycardia with regular rhythm, no murmurs, gallops, or rubs
Abd: Soft, non distended, nontender
Rectal: Dark brown stool Hemoccult positive
Neuro: Grossly intact
Skin: Somewhat pale, no rash
Extremities: Warm and well-perfused
Scores
Heart Failure Risk
Heart Failure Risk Score: Not Applicable
Heart Score for Chest Pain Patients
STEMI patient?: Not applicable
Withdrawal Assessment of Alcohol
Withdrawal Assessment Completed?: Not applicable
Course
Orders/Labs/Results
Orders:
Orders
12/25/24 14:40
EKG [Electrocardiogram (*1)] Urgent
Reason for Study: Chest Pain
EKG- Treatment ONCE
12/25/24 14:47
Type+Screen Urgent
Complete Blood Count/With Diff Urgent
Comprehensive Metabolic Panel Urgent
PTT Urgent
Prothrombin Time Urgent
12/25/24 15:33
Add On- LAB Urgent
Tests Added?: alcohol
12/25/24 15:59
* Blood Bank Products Urgent
Blood Bank Products: *Packed RBC Leuko(PRBC's)
Quantity: 2
Transfuse Today: Yes
Reason: Anemia
Pantoprazole [Protonix IV] 80 mg IV NOW STA
Abnormal Lab Results
12/25/24
14:47
RBC 2.73 L 10^6/uL
(4.70-6.10)
Hgb 6.6 L* g/dL
(13.0-18.0)
Hct 21.7 L %
(39.0-52.0)
MCV 79.5 L fL
(80.0-94.0)
MCH 24.2 L pg
(27.0-31.0)
MCHC 30.4 L g/dL
(33.0-37.0)
RDW 18.0 H %
(11.5-14.5)
Abs Immat Gran (auto) 0.1 H 10^3/uL
(0-0.05)
Absolute Neuts (auto) 6.6 H 10^3/uL
(1.4-6.5)
Absolute Lymphs (auto) 0.9 L 10^3/uL
(1.2-3.4)
Immature Gran % 0.7 H %
(0-0.5)
Neutrophils % 82.4 H %
(42.2-75.2)
Lymphocytes % 11.7 L %
(20.5-51.1)
PT 22.6 H Sec
(11.4-14.6)
APTT 38.4 H Sec
(23.4-35.0)
Chloride 111 H mmol/L
(98-107)
Carbon Dioxide 19 L mmol/L
(22-30)
Glucose 133 H mg/dl
(70-99)
Total Bilirubin 2.1 H mg/dl
(0.2-1.3)
Total Protein 6.2 L g/dl
(6.3-8.2)
Albumin 3.3 L g/dl
(3.5-5.0)
12/25/24 14:47
12/25/24 14:47
Vital Signs
Initial and Last Documented VS:
Initial Vital Signs
Temp Pulse Resp BP Pulse Ox
36.7 C 92 16 124/69 98
12/25/24 14:33 12/25/24 14:33 12/25/24 14:33 12/25/24 14:33 12/25/24 14:33
Last Documented Vital Signs
Temp Pulse Resp BP Pulse Ox
36.7 C 92 16 124/69 98
12/25/24 14:33 12/25/24 14:33 12/25/24 14:33 12/25/24 14:33 12/25/24 14:33
MDM/Problems Addressed
Differential Diagnosis Includes:
Variceal bleed, PUD, gastritis/esophagitis, angiectasia, etc
MDM/Problems Addressed:
44-year-old male who was admitted in October with variceal bleeding presents to the ER for hematemesis once again x 2 episodes today as well as some dark stools today. He is tachycardic but normotensive rest of vitals normal. No vomiting since
arrival here he is protecting his airway. Placed on a monitor, IV access established. Labs sent off including CBC which showed anemia with a hemoglobin of 6.6 down from discharge value of 7.6 in October after transfusions. CMP shows mild metabolic
acidosis likely from GI losses. Fortunately his platelet count is acceptable. Type and screen sent off. Will transfuse 2 units of PRBCs. Will start IV PPI. Given history of variceal bleeding will start octreotide as well. Discussed with GI for
consultation.. Discussed with hospitalist to facilitate admission.
Chronic conditions affecting care:
History of alcohol use
*Pulse Oximetry
SaO2: 98
Oxygen Mode of Delivery: Room air
Patient hypoxic: no (98%)
*EKG
Interpreted by ED Provider?: Yes
Heart Rate: 97
Rate: normal
Rhythm: sinus
[place]: normal axis
Interval: long QT
QRS Pattern: normal QRS
Ischemia: no ischemia
*Critical Care Note
Total Time (30-74mins, 75-104mins- exclusive of procedures): Not Applicable
Data Reviewed
Review of Other/Old Records Reveals: Labs, Records, Operative Reports and Discharge Summary
Source: patient and records
Patient Management
Discussion with other providers: Hospitalist (Discussed with hospitalist) and Level Glass Forming Machine Operator (Discussed with gastroenterology)
Escalation/DeEscalation of care consider admission/obs:
Admission indicated
ED Attending Note
-
Portions of this chart may have been created with voice recognition software.� Occasional wrong word or��sound alike� substitutions may have occurred due to the inherent limitations of voice recognition software.
Discharge Plan
Departure
Patient Disposition: Admit
Date of Disposition: 12/25/24
Time of Disposition: 16:04
Admit to doctor: Shruthi
Presentation/result/management discussed w/ accepting MD/DO: Hospitalist
Discharge Problem:
Acute upper GI bleed, Acute blood loss anemia
Prescriptions:
No Action
furosemide [Lasix] 20 mg Tablet
20 mg PO DAILYPRN PRN (Reason: leg swelling)
Referrals:
Dayanna El PA-C [Family Provider, General]
Interventions
Interventions:
*Risk Screen - Suicide Last Done: 12/25/24 14:41
*General Assessment Last Done: 12/25/24 14:41
*Neglect/Abuse Screening Last Done: 12/25/24 14:41
*ED- Fall Risk Assessment Last Done: 12/25/24 14:41
Discharge Date and Time
Print Language: FIJIAN
[2024-12-25] MEDS: SANDOSTATIN 50 MCG IV (16:26)
[2024-12-25] MEDS: PROTONIX IV 80 MG IV (16:26)
[2024-12-25] MEDS: SANDOSTATIN 250 MCG IV (16:50)
--- NOTE | 2024-12-25 16:57 | HPS.HSE ---
Addendum entered and electronically signed by Campbell Hawkins MD 12/25/24 17:44:
This is an addendum to H&P written by Allegra Weaver on 12/25/2024. �Patient seen and examined independently with FORESTRY CONSULTANT.
44-year-old male past medical history of esophageal varices status post banding in October, alcohol use disorder, alcoholic hepatitis, Meckel's diverticulum status post bowel resection, smoking history, presenting nausea, epigastric pain, bloody
vomiting, and dark stools starting today.
Vital signs unremarkable.
Labs show hemoglobin 6.6 from 7.6 previously.
Concern for acute blood loss anemia secondary to variceal bleeding. �Clear liquid diet, n.p.o. postmidnight. �2 units of blood. �Protonix drip, octreotide drip, ceftriaxone, GI consulted. �Check iron studies. �Hold Lasix.
No alcohol use since October.
Original Note:
Family Physician
-
Family Physician: Dayanna El
Chief Complaint
-
hematemesis, dark stool
History of Present Illness
44-year-old male with a past medical history for varices, alcohol abuse, diverticulitis presented to us with hematemesis and dark stool since this morning. patient stated epigastric pain. he felt fatigue, dizzy and sob. he thinks he had a fever
today. stated some chills as well. denied CAMPUZANO or syncope. denied chest pain. denied dysuria or hematuria.
upon arrival his hgb is 6.6. Initiated on IV PPI and octreotide. 2 units of PRBCs in the ER. Admitted for further management
Medical History
Past Medical History
Past Medical History: Reports Other
Additional Past Medical History:
Bleeding esophageal varices, portal hypertension, diverticulitis
Past Surgical History: Reports None
Social History
Tobacco: Smoker (1 pack daily)
Alcohol: None
Drug: Marijuana
Living: With Family
Employment: Employed
Family History
Family History: Not pertinent
Allergies / Home Medications
Allergies reflects when Allergies were last updated in [facility].
Home Medications with original date entered in [facility]
Allergy/Medication List:
Allergies
Allergy/AdvReac Type Severity Reaction Status Date / Time
Latex, Natural Rubber Allergy Rash Verified 12/25/24 16:21
Home Medications
furosemide 20 mg tablet (Lasix) 20 mg PO DAILYPRN PRN leg swelling 11/21/24
Review of Systems
-
Constitutional: Reports Fatigue and Chills
EENT: Reports No Symptoms
Respiratory: Reports No Symptoms
Cardiac: Reports No Symptoms
Abdomen/GI: Reports Abdominal Pain, Nausea, Vomiting and Black Stools
: Reports No Symptoms
Musculoskeletal: Reports No Symptoms
Skin: Reports No Symptoms
Neurological: Reports No Symptoms
Endocrine: Reports No Symptoms
Hematologic/Lymphatic: Reports No Symptoms
Psych: Reports No Symptoms
Physical Exam
Vital Signs
Vital Signs
Temp Pulse Resp BP Pulse Ox
98.0 F 100 12 118/58 98
12/25/24 14:33 12/25/24 16:00 12/25/24 16:00 12/25/24 16:00 12/25/24 16:06
Physical Exam
General: Well Developed, Well Nourished and No Apparent Distress
HEENT: NormoCephalic, Moist mucous membranes and Atraumatic
Respiratory: Clear
Cardiac: S1/S2 and Regular Rhythm; No Murmur or Rub
GI: Soft, Non Tender, Non Distended and Normal Bowel Sounds; No Organomegaly
Rectal: Deferred by Provider
Musculoskeletal: No Clubbing, No Cyanosis and No Edema
Skin: No Rash
Neuro: AO x 3 and Nonfocal/grossly intact
Psych: Calm
Laboratory Results
-
12/25/24 14:47
12/25/24 14:47
Laboratory Results
PT 22.6 Sec (11.4-14.6) H 12/25/24 14:47
INR 1.97 12/25/24 14:47
APTT 38.4 Sec (23.4-35.0) H 12/25/24 14:47
Total Bilirubin 2.1 mg/dl (0.2-1.3) H 12/25/24 14:47
AST 31 U/L (17-59) 12/25/24 14:47
ALT 24 U/L (0-50) 12/25/24 14:47
Alkaline Phosphatase 58 U/L (38-126) 12/25/24 14:47
Data Reviewed
-
Lab Data: Labs Reviewed by me
Impression/Plan
-
# Acute blood loss anemia secondary to symptomatic GI bleed
#hxt of esophageal varices s/p banding in October
#hxt of alcoholic hepatitis/cirrhosis
- Hemoglobin 6.6
- PPI continued
- PRBCs continued
- Clear liquid diet, NPO after MN
-ceftriaxone continued
-iron panel added
- GI consult
#Nicotine dependence
-smokes one pack a day
-denied nicotine patch.
#hxt of alcohol abuse
-no alcohol since last admission
# DVT prophylaxis
- SCDs
# CODE STATUS
- Full code
[2024-12-25] MEDS: ROCEPHIN 1000 MG IV (17:29)
[2024-12-25 18:10] LABS: Iron 73 ug/dl (49-181)
[2024-12-25 18:19] LABS: Total Iron Binding Capacity 387 ug/dl (261-462)
[2024-12-25 19:48] LABS: Ferritin 11.9 ng/ml (17.9-464.0)
[2024-12-25 20:19] LABS: Folate 5.9 ng/ml (2.76-20); Vitamin B12 942 pg/ml (239-931)
[2024-12-25] MEDS: COMPAZINE 10 MG IV (22:20)
[2024-12-25] MEDS: PROTONIX 100 IV (22:22)
[2024-12-25] MEDS: AQUAMEPHYTON 10 MG SC (22:22)
[2024-12-26] VITALS (81 sets, daily range): BP systolic 76–126; BP diastolic 43–92; PULSE 96–118; BMI 20.5
[2024-12-26 00:56] LABS: Hematocrit 20.6 % (39.0-52.0); Hemoglobin 6.7 g/dL (13.0-18.0)
--- NOTE | 2024-12-26 03:24 | W.PN.UPDATE ---
Update Note
Progress Note Update
Pt came in for vomiting blood at home. Had none in ED. Hx esophageal varices and banding october 2024. ETOH sober since october 2024. Vomited about 500ml (balwinder blood) on arrival to IMU. GI notified via TT. HH on admit 6.6 (2 units ordered) repeat (after
vomiting and transfusion) 6.7 two more units ordered. Vit k given per GI. NPO, Protonix and octreotide gtt hanging.�BP stable low 100 teens HR is tach teens- 130. To notify GI if continues to vomit.
[2024-12-26] MEDS: SANDOSTATIN 250 MCG IV ×2 (04:09→15:14)
--- NOTE | 2024-12-26 07:55 | PTCARENOTE ---
leacher note. Received verbal report from JEROME Ku. Pt arrived to the floor from the ED. Walked with a steady gait from the stretcher to the bed. Denies any lightheadedness. Pt aaox3. Sinus tach on the monitor. SpO2 98% on RA. While patient was
in the bathroom he became pale, diaphoretic and lightheaded. Pt had 3 episodes of hematemesis (approx. 500 mL of bright red blood in total) Pt also had two black/burgundy tarry liquid BMs. STEPHEN Rosario notified. Order received for Compazine and
phytonadione. Protonix and octreotide gtts both infusing. After the first unit of blood was done transfusing repeat H&H was 6.7 / 20.6 and STEPHEN made aware. 2 u PRBC ordered and were both transfused. Blood work to be drawn an hour after blood
finished transfusing. No further episodes of vomiting or diarrhea overnight.
[2024-12-26] MEDS: PROTONIX 100 IV ×2 (08:04→17:43)
--- NOTE | 2024-12-26 08:16 | CON.GI ---
Addendum entered and electronically signed by Araseli Spann MD 12/26/24 11:08:
I saw and examined the patient.
The medical records director's note was reviewed and I agree with the note.
Hematemesis / dark stool/ hx varices s/p EBL last repeat EGD 11/2024 - no varices - s/p 3 units PRBC
plan
NPO
continue monitor H/H . Keep Hb > 7
continue PPI/ octreotide drip
continue IV antibiotics
daily MELD score
EGD today
Original Note:
Consultation
-
Date/Time Consultation Requested: 12/25/2024 16:00
Date/Time Consultation Performed: 12/26/2024 08:00
Requesting Provider: Keyur Manzo
Performing Provider: Araseli Spann
Reason for Consultation: Upper GI Bleed
Medical History
Chief Complaint / HPI
Chief Complaint: Bloody vomiting/dark stools
History of Present Illness:
Miguelito is a 44-year-old male with a past medical history of esophageal varices status post banding in October 2024 at [facility], history of alcohol use disorder (currently in remission since October 2024), history of alcoholic hepatitis, Meckel's diverticulum
status post bowel resection in remote past, tobacco use presents with less than 24 hours of large-volume bloody vomitus.
Patient reports he was in his usual state of health on 12/25 when he woke up feeling nauseous and unwell. He had a large volume dark emesis at 11 AM which he thought initially might have been food as he had had barbecue the night before, however on
further inspection he realized there were blood clots in the vomitus. Tried to go to work, however felt unwell and had another episode of large-volume bloody vomiting with blood clots and then drove himself to the ED. He does not report any new
NSAID use, uses Excedrin intermittently (perhaps 2 times every other week), and has not been drinking since prior admission. Denies any fevers, chills, urinary or bowel changes. He does report having mild URI symptoms the week prior with
associated postnasal drip and significant coughing. He also reports dark stools the day of admission, but no bright red blood per rectum.
He had no additional vomiting in the ED. He was hemodynamically stable on admission, however was tachycardic. Hemoglobin on admission was 6.6 he was transfused 2 units, started on IV fluids, octreotide, PPI drip, IV ceftriaxone, and transferred to
IMU. However in IMU he had roughly 3 episodes of large-volume balwinder blood (approximately 500 cc per episode). He was ordered 2 more units of blood and a repeat hemoglobin demonstrated 6.7. He was given vitamin K.
GI was consulted for upper GI bleed and concerns of repeat variceal bleeding
Of note patient had admission in October 2024 for similar symptoms of upper GI bleeding with history of active alcohol use. He was treated with MSAS protocol, IV antibiotics, PPI drip, phenobarbital taper, and IV fluids. He had an endoscopy which
demonstrated grade 2 esophageal varices with stigmata of recent bleeding which were banded. He was sent home on twice daily PPI and intended to be sent home on 10 mg propranolol every 12 hours until otherwise instructed by PCP or GI for the
prevention of continued esophageal variceal bleeding. He was seen by GI in November 2024 and had repeat endoscopy with Dr. Barajas which demonstrated no evidence of esophageal varices, mild portal hypertensive gastropathy, diffuse congested mucosa
of gastric antrum and 1st and 2nd portions of the duodenum, but no endoscopic evidence of varices or variceal bleeding in stomach. He establish primary care with a provider at [facility] and was continued on Lasix, however was not continued on any
PPIs or beta-blockers.
Past Medical History
Past Medical History: Other (See HPI)
Past Surgical History: Other (Laparoscopic small bowel resection (August 2016))
Social History
Tobacco: Smoker
Alcohol: Former
Living: With Family
Employment: Employed
Family History
Family History: Reviewed & Not Pertinent
Allergies / Home Medications
Allergy/AdvReac Type Severity Reaction Status Date / Time
Latex, Natural Rubber Allergy Rash Verified 12/25/24 16:21
�Medication �Instructions �Recorded
furosemide 20 mg tablet (Lasix) 20 mg PO DAILYPRN PRN leg swelling 11/21/24
Review of Systems
-
History Source: Patient
All other systems: A 12 pt ROS was Negative except as stated above in HPI
Vital Signs
Temp Pulse Resp BP Pulse Ox
98.7 F 96 15 105/61 99
12/26/24 07:24 12/26/24 08:00 12/26/24 08:00 12/26/24 08:00 12/26/24 08:00
Physical Exam
Exam
General: Well Developed, Well Nourished, No Apparent Distress and Comfortable
HEENT: Normocephalic, Anicteric, Moist Mucous Membranes and Atraumatic
Respiratory: Clear and Non Labored Respirations; Negative Wheezes, Rales or Rhonchi
Cardiac: S1/S2
Breast: N/A
GI: Soft, Non Tender, Non Distended and Normal Bowel Sounds
Rectal: Deferred by Provider
Musculoskeletal: No Clubbing, No Cyanosis and No Edema
Skin: Warm and Dry
Neuro: AO x 3
Psych: Calm
Results
WBC 8.0 10^3/uL (4.8-10.8) 12/25/24 14:47
Hgb 6.7 g/dL (13.0-18.0) L* 12/26/24 00:38
Hct 20.6 % (39.0-52.0) L* 12/26/24 00:38
MCV 79.5 fL (80.0-94.0) L 12/25/24 14:47
Plt Count 163 10^3/uL (130-400) 12/25/24 14:47
Absolute Neuts (auto) 6.6 10^3/uL (1.4-6.5) H 12/25/24 14:47
PT 22.6 Sec (11.4-14.6) H 12/25/24 14:47
INR 1.97 12/25/24 14:47
APTT Cancelled 12/26/24 00:20
Sodium 139 mmol/L (135-145) 12/25/24 14:47
Potassium 4.4 mmol/L (3.5-5.1) 12/25/24 14:47
Chloride 111 mmol/L (98-107) H 12/25/24 14:47
Carbon Dioxide 19 mmol/L (22-30) L 12/25/24 14:47
BUN 19 mg/dl (9-20) 12/25/24 14:47
Creatinine 0.7 mg/dL (0.7-1.3) 12/25/24 14:47
Calcium 8.7 mg/dl (8.4-10.2) 12/25/24 14:47
Total Bilirubin 2.1 mg/dl (0.2-1.3) H 12/25/24 14:47
AST 31 U/L (17-59) 12/25/24 14:47
ALT 24 U/L (0-50) 12/25/24 14:47
Alkaline Phosphatase 58 U/L (38-126) 12/25/24 14:47
Diagnostic Image Results:
Prior GI Procedures:
EGD:
Colonoscopy:
Assessment / Plan
-
Miguelito is a 44-year-old male with a past medical history of esophageal varices status post banding in October 2024 at [facility], history of alcohol use disorder (currently in remission since October 2024), history of alcoholic hepatitis, Meckel's diverticulum
status post bowel resection in remote past, tobacco use presents with less than 24 hours of large-volume bloody vomitus. He has a history of bleeding esophageal varices, endoscopically banded in October 2024, with repeat endoscopy in November 2024
showing resolution of esophageal varices and no active bleeding.
#Upper GI bleed
#Bloody vomiting
#History of bleeding esophageal varices, s/p banding in October 2024
#History of alcohol use disorder/alcoholic hepatitis
#Acute blood loss anemia
#Hyperbilirubinemia
Symptoms, history, lab reports most consistent with repeat variceal bleeding. Other etiologies include bleeding gastric ulcer vs. bleeding AVM vs. Hien Perera tear vs. other
- Patient received additional 2 units of blood after overnight vomiting, repeat hemoglobin pending --has had no new episodes of vomiting since last night
- Iron studies on this admission demonstrating low iron % saturation, low ferritin, normal TIBC, normal iron
- Continue with IV PPI drip
- Continue with IV antibiotics to prevent bacterial translocation
- Continue with octreotide drip
- Continue with IV fluids while n.p.o.
- S/p vitamin K
- Will go for EGD this morning with repeat banding if needed
- GI will follow
-
-
Thank you for consultation and allowing me to participate in the patient's care. Please call the [facility] GI physician during the after hours with any questions or concerns.
[2024-12-26 09:00] LABS: Hematocrit 23.6 % (39.0-52.0); Hemoglobin 7.9 g/dL (13.0-18.0); Mean Corp Hgb Conc. 33.5 g/dL (33.0-37.0); Mean Corpuscular Volume 79.7 fL (80.0-94.0); Red Cell Dist. Width 16.2 % (11.5-14.5)
[2024-12-26 09:10] LABS: INR 2.06; PT 23.7 Sec (11.4-14.6)
[2024-12-26 09:11] LABS: APTT 39.9 Sec (23.4-35.0)
[2024-12-26 10:18] LABS: Blood Urea Nitrogen 25 mg/dl (9-20); Calcium 8.3 mg/dl (8.4-10.2); Carbon Dioxide 22 mmol/L (22-30); Chloride 115 mmol/L (98-107); Estimated Creatinine Clearance 110 ml/min; Glucose 110 mg/dl (70-99); Potassium 4.6 mmol/L (3.5-5.1); Sodium 139 mmol/L (135-145); eGFR > 60.00
--- NOTE | 2024-12-26 10:20 | PTCARENOTE ---
Got up to pass stool- 300ml melena noted in hat. Pale, Ox3. VS 95/55 SR 106 RR 17 99% on RAIR. IV Protonix and Sandostatin gtts infusing. 3 IV sites all patent. Denies pain. 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
[2024-12-26 10:26] LABS: Platelet Count 88 10^3/uL (130-400)
--- NOTE | 2024-12-26 13:58 | PTCARENOTE ---
Returned from PACU, drowsy, arousable and oriented. O2 at 2L NC intact. BP 90s/50s SR 100s. IV Sandostatin and Protonix gtts infusing-
--- NOTE | 2024-12-26 14:40 | W.DCSUMMARY ---
Discharge Summary
Discharge Data
Date of Admission: 12/25/24
Date of Discharge: 12/26/24
Total time spent discharging patient (in min): 59
-
Pending Results: No
Hospital Course
Mr. Marshall is a 44-year-old male with medical history of alcoholic hepatitis and cirrhosis with esophageal varices (history of banding October 2024) who presented after an episode of large-volume hematemesis and melena. His hemoglobin at the time of
presentation was 6.6. He was transfused 2 units PRBCs initially. He was started on IV Protonix drip and octreotide drip. Repeat hemoglobin only improved to 6.7 and so he was transfused 2 more units of PRBCs (4 units total). He was brought for
endoscopy with GI on 12/26 with findings of multiple type II gastroesophageal varices with stigmata of recent bleeding. The gastroenterology team spoke with the advanced gastroenterology team at [facility] for transfer. Patient was accepted for
transfer to the ICU at [facility] under the care of Dr. Damien Danielle.
General: No Apparent Distress, pale
HEENT: NormoCephalic, Moist mucous membranes, Atraumatic
Respiratory: Clear and Non Labored Respirations
Cardiac: S1/S2 and Regular Rhythm; No Rub or Gallop
GI: Soft, generalized TTP, Non Distended and Normal Bowel Sounds
Musculoskeletal: No Edema, no deformity
: NO Jacinto
Neuro: Awake, Alert, Nonfocal/grossly intact
Psych: Calm and Intact Judgment/Insight
Discharge Plan
-
Patient Disposition: Acute Care Hospital
Discharge Orders:
Discharge Patient (As Directed); Ordered 12/26/24
Ordered By: Anthony Saucedo
Discharge Date and Time
Print Language: POLISH
[2024-12-26] MEDS: NSS 1000 IV (14:42)
--- NOTE | 2024-12-26 14:50 | CM ---
Initial assessment completed with medical records and confirmation of info with patient. Patient lives with his Fidaria'e in a 2 story home with no basement, B/B on 2nd, no bath on 1st,24 steps to enter. 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
and ADL's, drives and works FT. No DME. No in-home services. Not interested in [facility] services. PA is Lea El with [facility]. Pharmacy is [facility] in [place]. Discharge POC: Home with no needs.
--- NOTE | 2024-12-26 14:52 | W.PN.UPDATE ---
Update Note
Progress Note Update
Discussed with advanced GI team/liver team at [facility]. Patient is accepted for ICU bed at [facility] for further management of gastric varices. Informed patient about transfer. Discussed with hospitalist as well
--- NOTE | 2024-12-26 14:56 | CM ---
Patient has been medically cleared for discharge to home with no additional skilled services. Patient has arranged for transport home.
--- NOTE | 2024-12-26 15:41 | CM ---
Patient is to be discharged to [facility] for specialized acute services in gastroenterology ICU. Ambulance transport.
[2024-12-26 16:55] LABS: Hematocrit 18.1 % (39.0-52.0); Hemoglobin 6.0 g/dL (13.0-18.0)
--- NOTE | 2024-12-26 18:45 | PTCARENOTE ---
KATALINA called for report given will transfer to room #885. Diane (significant other ) notified, updated at [phone]. IV sites infiltrated RFA removed now another on left arm. VAT team notified- attempted x3- PRBCs infusing via #18 LAC 1 unit
completed without difficulty- now infusing 2nd unit. Awaiting ambulance transport.
--- NOTE | 2024-12-26 22:14 | PTCARENOTE ---
Assumed care of patient from dayshift RN. Pt aaox3. SpO2 98% on RA. NSR on monitor, hr 90s. Vitals as documented. Pt denies any nausea or pain. No vomiting or BM this evening. one unit of blood ready to be infused. Blood began transfusing at 2049.
No transfusion reactions observed. Pt to be transported to [facility] this evening. Verbal report provided to JEROME Lucero at [facility]. [facility] transport arrived to take patient. Report given as well as all paperwork. Pt left via stretcher with all belongings and
unit of blood transfusing.
== END 2024-12-26 22:21 | disposition short-term general hospital (02) | DRG 369 ==
LOC: IMU 17:22
PROVIDERS: Emergency Medicine; Nurse Practitioner Family; Registered Nurse; ADMITTING PHYSICIAN Hospitalist; ATTENDING PHYSICIAN Internal Medicine; CONSULT PHYSICIAN Internal Medicine Gastroenterology; EMERGENCY PHYSICIAN Emergency Medicine; FAMILY PHYSICIAN Physician Assistant
PROC: 30233N1 Transfusion of Nonautologous Red Blood Cells into Peripheral Vein, Percutaneous Approach (ICD-10-PCS; 2024-12-25)
PROC: 0DJ08ZZ Inspection of Upper Intestinal Tract, Via Natural or Artificial Opening Endoscopic (ICD-10-PCS; 2024-12-26)
DX: I85.11 Secondary esophageal varices with bleeding (principal); D62 Acute posthemorrhagic anemia; K76.6 Portal hypertension; K70.10 Alcoholic hepatitis without ascites; K70.30 Alcoholic cirrhosis of liver without ascites; F10.11 Alcohol abuse, in remission; I86.4 Gastric varices; F17.210 Nicotine dependence, cigarettes, uncomplicated; Z90.49 Acquired absence of other specified parts of digestive tract
CPT/HCPCS: 36430; 80048; 80053; 82077; 82607; 82728; 82746; 83540; 83550; 85014; 85018; 85025; 85027; 85610; 85730; 86850; 86900; 86901; 86920; 93005; 96374; 96375; 99285; J2354; P9016